=== PATIENT | female | born 1945 | race Caucasian/White ===

== ENCOUNTER 2020-01-24 14:01 | Outpatient (CLI) | payer OTHER, SELFPAY ==
--- NOTE | ~2020-01-24 | MM_ITS ---
EXAMINATION: MM screening maame BI w rema HISTORY: Screening mammogram TECHNIQUE: Craniocaudal and mediolateral oblique 3-D tomosynthesis images were obtained and synthetic 2-D images were generated. CAD analysis was submitted and interpreted. COMPARISON: 12/12/2018, 11/11/2017, 10/20/2016 bilateral digital screening mammogram examinations BREAST PARENCHYMAL COMPOSITION: The breasts are almost entirely fatty. FINDINGS: There is no evidence of suspicious mass, calcification, or architectural distortion to sugg est malignancy in either breast. There has been no suspicious interval change. IMPRESSION: 1. No mammographic evidence of malignancy. 2. Recommend routine screening mammography in one year. BI-RADS Category 1: Negative Reviewed, dictated and finalized at location A.
== END 2020-01-24 14:02 | disposition home or self-care (01) ==
DX: Z12.31 Encounter for screening mammogram for malignant neoplasm of breast (principal)
CPT/HCPCS: 77063; 77067

== ENCOUNTER 2021-01-16 18:38 | Emergency (ER) | payer OTHER, SELFPAY ==
--- NOTE | ~2021-01-16 | XR_ITS ---
XR hip RT 2V w AP pelvis DATE: 01/16/2021 19:20 INDICATION: Fall. Right hip pain TECHNIQUE: AP pelvis. AP and lateral views of right hip COMPARISON: 12/27/2013 right hip FINDINGS: Osteopenia. No fracture or dislocation, avascular necrosis or bone destruction of the right hip. Mild osteoarthritis of both hip joints. Mild osteitis pubis. The sacroiliac joints are intact. No pel dedra fracture or bone destruction is detected. Radiopaque bowel sutures overlie the right lower quadrant. There is prominent calcification of the abdominal aorta. Degenerative disc disease of the lumbar and lumbosacral area. IMPRESSION: No pelvic or right hip fracture or dislocation Osteopenia Osteitis pubis Reviewed, dictated and finalized at location A.
--- NOTE | ~2021-01-16 | XR_ITS ---
XR forearm RT 2V DATE: 01/16/2021 19:20 INDICATION: Fall. Forearm injury TECHNIQUE: AP and lateral views COMPARISON: None FINDINGS: Osteoarthritic changes at the elbow joint. There is prominent osteoarthritic change at the first carpometacarpal joint and first metacarpophalan geal and included third metacarpophalangeal joints. No fracture or dislocation, periosteal reaction or bone destruction. IMPRESSION: Polyarticular osteoarthritis No fracture or dislocation Reviewed, dictated and finalized at location A.
--- NOTE | ~2021-01-16 | XR_ITS ---
XR foot LT min 3V DATE: 01/16/2021 19:20 INDICATION: Fall. Left foot pain, swelling TECHNIQUE: 4 views COMPARISON: None FINDINGS: Prominent plantar calcaneal enthesopathy and mild posterior calcaneal enthesopathy, without erosive change or periostitis. There are degenerative changes of the tarsal and tarsometatarsal joints. No fracture or dislocation, periosteal reaction or bone destruction. IMPRESSION: No fracture or dislocation is detected Calcaneal enthesopathy Osteoarthritic changes of the tarsal and tarsometatarsal joints Reviewed, dictated and finalized at location A.
[2021-01-16 18:45] VITALS: BP 161/67; PULSE 66; RESP 18; TEMP 36.6; O2SAT 99
[2021-01-16] MEDS: ACETAMINOPHEN 325 MG TABLET 650 MG PO (19:22)
--- NOTE | 2021-01-16 20:05 | ED.FALL ---
HPI - Fall General Chief Complaint: Fall Stated Complaint: fall Time Seen by Provider: 01/16/21 18:47 Source: patient, family and RN notes reviewed Mode of arrival: ambulatory Limitations: no limitations History of Present Illness HPI Narrative: Patient is a 75-year-old female who presents to emergency department for evaluation of injuries related to a fall that occurred just prior to arrival she misstepped falling down injuring the right lateral forearm ulnar aspect as well as the right thigh hip and left foot patient notes aching pain to these locations the forearm has an abrasion and open area where there is an underlying hematoma patient is unsure as to tetanus status patient denies head injury syncope loss of consciousness on arrival patient does not appear distressed patient has not had anything for pain Related Data Home Medications Medication Instructions Recorded Confirmed diltiazem HCl PO 01/16/21 ergocalciferol (vitamin D2) 01/16/21 hydrochlorothiazide 01/16/21 loteprednol etabonate [Lotemax SM] drp 01/16/21 potassium chloride meq PO 01/16/21 Allergies Allergy/AdvReac Type Severity Reaction Status Date / Time erythromycin base Allergy Severe N/V Verified 01/16/21 18:40 codeine Allergy Unknown Gastrointestinal Verified 01/16/21 18:40 Upset pentazocine Allergy Unknown Unknown Verified 01/16/21 18:40 Sulfa (Sulfonamide Allergy Unknown Nausea and Verified 01/16/21 18:40 Antibiotics) Vomiting sulfanilamide Allergy Unknown Difficulty Verified 01/16/21 18:40 Swallowing HYDROCODONE BIT AdvReac Severe N/V Uncoded 04/20/19 21:21 PENTAZOCINE LACTATE AdvReac Severe N/V Uncoded 04/20/19 21:21 Review of Systems Review of Systems: All systems reviewed & are unremarkable except as noted in HPI and below PMFSH Family History Family History (Updated 02/28/16 @ 23:19 by DOCTOR UNKNOWN) Mother Carcinoma of colon Family history of malignant neoplasm of breast in first degree relative Other Diabetes mellitus Family history of allergic disorder Hypertension Social History Social History Smoking status: Never smoker Alcohol intake: current Exam Narrative: Exam Narrative: GENERAL: Well-appearing, well-nourished, and in no acute distress. HEAD: Normocephalic, atraumatic. EYES: PERRLA and EOMI. ENT: Nares clear, no rhinorrhea or epistaxis. Mucous membranes moist. CHEST: Clear to auscultation. No respiratory distress. No wheezes rales or rhonchi HEART: Regular rate and rhythm. No murmur heard. Normal peripheral pulses. EXTREMITIES: Normal range of motion. No edema. Hematoma swelling and tenderness with abrasion of the right distal forearm ulnar aspect. Tenderness of the right hip no deformity noted. Tenderness to the dorsal surface of the left forefoot no deformity noted. No cervical thoracic or lumbar tenderness SKIN: Warm, dry, no rash. NEURO: No focal deficits. Alert and oriented x3. Neurovascularly intact. Normal speech and gait PSYCH: Normal mood and affect. Course Course Emergency Course: Patient in the room in no distress aware of case findings treatment plan diagnosis agreeing to follow-up as instructed felt appropriate for outpatient reevaluation Vital Signs Vital signs: Vital Signs Temperature 97.9 F 01/16/21 18:45 Pulse Rate 66 01/16/21 18:45 Respiratory Rate 18 01/16/21 18:45 Blood Pressure 161/67 H 01/16/21 18:45 Pulse Oximetry 99 01/16/21 18:45 Temperature 97.9 F 01/16/21 18:45 Pulse Rate 66 01/16/21 18:45 Respiratory Rate 18 01/16/21 18:45 Blood Pressure 161/67 H 01/16/21 18:45 Pulse Oximetry 99 01/16/21 18:45 MDM - Fall MDM Narrative Medical decision making narrative: Patients injury or pain is consistent with musculoskeletal etiology. No signs of neurological or vascular compromise on exam. Compartments and tisues are soft without signs of compartment syndrome. Pain is
[2021-01-16 20:22] VITALS: BP 153/68; PULSE 68; RESP 16; O2SAT 98
== END 2021-01-16 20:21 | disposition home or self-care (01) ==
PROVIDERS: Emergency Provider Emergency Medicine
DX: S50.11XA Contusion of right forearm, initial encounter (principal); S50.811A Abrasion of right forearm, initial encounter; S90.32XA Contusion of left foot, initial encounter; M25.551 Pain in right hip; M85.88 Other specified disorders of bone density and structure, other site; M86.9 Osteomyelitis, unspecified; M77.32 Calcaneal spur, left foot; M19.021 Primary osteoarthritis, right elbow; W10.9XXA Fall (on) (from) unspecified stairs and steps, initial encounter
CPT/HCPCS: 73090; 73502; 73630; 99284; A9270

== ENCOUNTER 2024-06-12 10:39 | Emergency (ER) | payer OTHER, SELFPAY ==
--- NOTE | ~2024-06-12 | XR_ITS ---
EXAMINATION: XR shoulder RT min 2V DATE: 06/12/2024 11:17 INDICATION: Right shoulder pain. Fall. TECHNIQUE: 4 views of right shoulder were obtained. COMPARISON: Right shoulder radiographs 07/30/2009 FINDINGS: Alignment is normal. No fracture. There is mild osteoarthritis of glenohumeral joint and se keyur osteoarthritis of acromioclavicular joint. IMPRESSION: 1. Polyarticular osteoarthritis. Reviewed, dictated and finalized at location A. [employer]
[2024-06-12 10:54] VITALS: BP 146/55; PULSE 62; RESP 18; TEMP 36.2; O2SAT 100
--- NOTE | 2024-06-12 10:56 | ED.EXTPRO ---
HPI - Extremity Problem General Chief complaint: Extremity Injury, Upper Stated complaint: RT Arm Pain Source: patient, RN notes reviewed and old records reviewed Mode of arrival: ambulatory Limitations: no limitations History of Present Illness HPI Narrative: patient presents with complaints of right shoulder pain, worse with movement. She reports that 1 week ago her 180 lb dog knocked her into the yd, she landed on her right shoulder. She has been taking Tylenol for pain. She reports that she feels as though the pain is getting worse instead of better. She does have full range of motion to the affected shoulder. She denies other injury and trauma. She voices no other concerns or complaints at this time. Related Data Home Medications Medication Instructions Recorded Confirmed calcium carbonate (Calcium 600) 600 mg PO BID 11/18/22 06/12/24 cholecalciferol (vitamin D3) 25 25 mcg PO BID 11/18/22 06/12/24 mcg (1,000 unit) tablet (Vitamin D3) diltiazem HCl 300 mg capsule,24 300 mg PO DAILY 11/18/22 06/12/24 hr,extended release escitalopram oxalate 10 mg tablet 10 mg PO DAILY 11/18/22 06/12/24 hydrochlorothiazide 12.5 mg tablet 12.5 mg PO DAILY 11/18/22 06/12/24 pantoprazole 40 mg tablet,delayed 40 mg PO QAM 11/18/22 06/12/24 release potassium chloride 10 mEq 20 meq PO DAILY 11/18/22 06/12/24 tablet,extended release Allergies Allergy/AdvReac Type Severity Reaction Status Date / Time sulfanilamide Allergy Intermediate Difficulty Verified 06/12/24 10:59 Swallowing codeine AdvReac Intermediate Gastrointestinal Verified 06/12/24 10:59 Upset erythromycin base AdvReac Intermediate Nausea and Verified 06/12/24 10:59 Vomiting pentazocine AdvReac Intermediate Unknown Verified 06/12/24 10:59 Sulfa (Sulfonamide AdvReac Intermediate Nausea and Verified 06/12/24 10:59 Antibiotics) Vomiting HYDROCODONE BIT AdvReac Intermediate Nausea and Uncoded 06/12/24 10:59 Vomiting PENTAZOCINE LACTATE AdvReac Intermediate Nausea and Uncoded 06/12/24 10:59 Vomiting Review of Systems Review of Systems: All systems reviewed & are unremarkable except as noted in HPI and below Constitutional: Constitutional: Reports no additional constitutional complaints ENT: Reports system reviewed and no additional complaints, except as documented Cardiovascular: Cardiovascular: Reports no additional cardiovascular complaints Respiratory: Respiratory: Reports no additional respiratory complaints Gastrointestinal: Gastrointestinal: Reports no additional gastrointestinal complaints Musculoskeletal: Musculoskeletal: Reports no additional musculoskeletal complaints, Reports as per HPI and Reports arthralgias (right shoulder) [facility], [facility] Past Medical History Medical History Arthritis Chronic GERD History of vaginal delivery x 3 Hypertension Surgical History Surgical History History of bladder surgery History of cholecystectomy History of hysterectomy [place] teeth removed Family History Family History Mother Carcinoma of colon Family history of malignant neoplasm of breast in first degree relative Diabetes mellitus Other Family history of allergic disorder Social History Social History Smoking status: Never smoker Alcohol intake: former Substance use: never Lack of Transportation: No Lack of Food: Never True Current Housing: I Have Housing Concerned About Future Housing: No Difficulty Paying Gas/Electric Bills: No Difficulty Paying for Meds: No Currently Unemployed: No Education: Grade School Difficulty w/ Childcare or Family Care: No Living arrangements: with family Occupation/Education: occupation Gender identity (if verbalized by the patient): Female Sexual Orientation (if Verbalized by the Patient): Straight or Heterosexual Spiritual care concerns: No Comments At the time of my signature, I reviewed and agree with the nursing past medical, surgical, social, and family history. There is no relevant family history pertinent to the patient complaint. Exam Const: General: cooperative, no acute distress, alert and awake Orientation/consciousness: oriented to person, oriented to place and oriented to time HENMT: Head: normal to inspection Resp: Effort & Inspection: normal respiratory effort and able to speak in complete sentences Auscultation: clear to auscultation bilaterally, no crackles, no rales, no rhonchi and no wheezes Cardio: Palpation: normal PMI Rate: regular rate Rhythm: regular rhythm Heart sounds: S1 normal heart sound present and S2 normal heart sound present Neuro: General: oriented to person, oriented to place and oriented to time Cranial nerves: Yes CN's II-XII intact bilaterally Extrem: Right upper extremity: normal to inspection, full ROM, normal capillary refill and shoulder/upper arm tenderness of the A-C joint Psych: Appearance: grossly normal Thought process: Normal thought process present Insight: Good insight present (Psych) Judgement: Good judgement present (Psych) Course Course Level of Care: Express Care Visit Vital Signs Vital signs: Vital Signs Temperature 97.2 F L 06/12/24 10:54 Pulse Rate 62 06/12/24 10:54 Respiratory Rate 18 06/12/24 10:54 Blood Pressure 146/55 H 06/12/24 10:54 Pulse Oximetry 100 06/12/24 10:54 Oxygen Delivery Room Air 06/12/24 10:54 Temperature 97.2 F L 06/12/24 10:54 Pulse Rate 62 06/12/24 10:54 Respiratory Rate 18 06/12/24 10:54 Blood Pressure 146/55 H 06/12/24 10:54 Pulse Oximetry 100 06/12/24 10:54 Oxygen Delivery Room Air 06/12/24 10:54 Reviewed MDM - Extremity (Nontraumatic) MDM Narrative Medical decision making narrative: Patient with same level fall last week, right shoulder pain since. Negative x-ray, patient able to move affected limb without difficulty. recommend supportive care measures. Follow with primary care provider. Discharge instructions reviewed with patient, as well as provided in writing per nursing staff. The instructions also include specific and strict return/GO TO THE ER as well as f/u information. All questions have been answered, and the patient deny any further questions with discharge and discharge plan. Some parts of this dictation were generated by voice recognition software and may contain typographical and/or grammatical inaccuracies. Differential Diagnosis Differential diagnosis: Likely other (Shoulder pain, shoulder sprain, clavicle fracture) Medical Records Attestation: I reviewed the patient's medical records. Discharge Plan Discharge Clinical Impression: Acute shoulder pain Qualifiers: Laterality: right Qualified Code(s): M25.511 - Pain in right shoulder Patient Disposition: Home, Self-Care Condition: Stable Instructions: Antibiotic Form, Shoulder Pain (ED) Additional Instructions: Tylenol per package instructions as needed for pain. Follow-up with primary care provider. Emergency department for new or worsened Patient Language: Spanish Prescriptions: No Action escitalopram oxalate 10 mg tablet 10 mg PO DAILY hydrochlorothiazide 12.5 mg tablet 12.5 mg PO DAILY pantoprazole 40 mg tablet,delayed release (DR/EC) 40 mg PO QAM diltiazem HCl 300 mg capsule,extended release 24 hr 300 mg PO DAILY potassium chloride 10 mEq tablet extended release 20 meq PO DAILY cholecalciferol (vitamin D3) [Vitamin D3] 25 mcg (1,000 unit) tablet 25 mcg PO BID calcium carbonate [Calcium 600] 600 mg calcium (1,500 mg) tablet 600 mg PO BID estradiol [Estrace] 0.01 % (0.1 mg/gram) cream See Rx Instructions vaginal .COMPLEX Qty: 42.5 0RF Rx Instructions: apply 1g applicatorful 2-3 times weekly as needed Follow-up/Referrals: Tom,Chris Morin [Other] - 3 Days Time of Disposition: 11:39
== END 2024-06-12 11:42 | disposition home or self-care (01) ==
PROVIDERS: Emergency Provider Nurse Practitioner Family
DX: M25.511 Pain in right shoulder (principal); I10 Essential (primary) hypertension; M19.90 Unspecified osteoarthritis, unspecified site; K21.9 Gastro-esophageal reflux disease without esophagitis
CPT/HCPCS: 73030; 99213; G0463

== ENCOUNTER 2025-01-10 12:43 | Emergency (ER) | payer OTHER, SELFPAY ==
--- NOTE | ~2025-01-10 | CT_ITS ---
EXAMINATION: CT abd pelvis lumbar wo con DATE: 01/10/2025 14:05 INDICATION: Abdominal pain and epigastric pain. TECHNIQUE: Computed tomography (CT) of the abdomen, pelvis and lumbar spine was performed without int ravenous contrast. Echodense Lenny The dose-length product was 576.47 mGy-cm. COMPARISON: 01/01/2014 FINDINGS: Mild discoid atelectasis in bilateral lower lobes. Stable appearance of a couple pulmonary nodules in the right lower lobe the largest measuring 7-8 mm which given the interval stability are likely brendon gn requiring no further follow-up. Heart size is normal. No pericardial or pleural effusion. Small sl iding-type hiatal hernia. Cholecystectomy clips the gallbladder fossa. Liver, spleen, pancreas, bilat eral adrenal glands and kidneys are normal. Status post right hemicolectomy with ileocolic anastomosi s in the right lower quadrant. No bowel obstruction. There are few scattered diverticula along the de scending and sigmoid colon without adjacent from trace stranding to suggest diverticulitis. Postopera tive change along the margins of a small fat-containing supraumbilical ventral hernia. Large calcifie d bladder stone within the partially decompressed bladder. Pessary within the vaginal vault. No free intraperitoneal gas or fluid. No pathologically enlarged abdominal or pelvic lymphadenopathy. Mild focal lumbar dextrocurvature. 5 mm anterolisthesis L4 on L5. Vertebral body heights are normal. No fracture. There is moderate to severe disc height loss with vacuum phenomena at L4-L5. Moderate di sc height loss at T9-T10, L2-L3 and L3-L4 and mild disc height loss at T10-T11 through L1-L2. These c ontribute to multilevel central canal stenosis from L1-L2 through L4-L5.Superimposed right paracentra l disc extrusion at L4-L5 which extends up to 9 mm cephalad to the level of the inferior endplate of L4. There is severe bilateral facet osteoarthritis at L4-L5 and L5-S1 with moderate facet osteoarthri tis in the more cephalad lumbar spine. This contributes to mild bilateral neural foraminal stenosis f rom L1-L2 through L4-L5. IMPRESSION: 1. No acute intra-abdominal/pelvic process. 2. Small sliding-type hiatal hernia. 3. Small fat-containing supraumbilical ventral hernia. 4. Moderate to severe lumbar spondylosis. Reviewed, dictated and finalized at location A.
--- NOTE | ~2025-01-10 | XR_ITS ---
XR thoracic spine 3V 01/10/2025 14:26 Indication: Back pain after fall Procedure: 3 views thoracic spine Comparison: 06/07/2010 Findings: Vertebral body heights are maintained. Mild thoracic spondylosis. Accentuated kyphosis. Mil d levoscoliosis. There are cholecystectomy clips. No paraspinal soft tissue abnormality. Pedicles int act. Impression: 1: No acute abnormality of the thoracic spine. Reviewed, dictated and finalized at location B. Impression: 1: No acute abnormality of the thoracic spine.
--- NOTE | ~2025-01-10 | XR_ITS ---
[XR ribs LT 2V ] INDICATION: Left rib pain after fall TECHNIQUE: Frontal projection of the upper left ribs, frontal projection of the lower left ribs, obli que projection of all the left ribs, frontal inspiratory chest x-ray for interpretation. FINDINGS: There are no displaced rib fractures identified. There are no soft tissue abnormality see n. The lungs are clear. IMPRESSION: 1:No acute displaced rib fractures. Reviewed, dictated and finalized at location B.
[2025-01-10 12:50] VITALS: BP 156/61; PULSE 74; RESP 18; TEMP 36.6; O2SAT 100
[2025-01-10 13:09] VITALS: BP 170/87; PULSE 67; RESP 16; O2SAT 98
--- NOTE | 2025-01-10 13:38 | ED.FALL ---
HPI - Fall General Chief Complaint: Fall Stated Complaint: PAIN AFTER FALL 2WKS AGO Time Seen by Provider: 01/10/25 13:10 History of Present Illness HPI Narrative: 79-year-old female presenting to the emergency department for evaluation of left-sided back pain abdominal pain. Patient states that she fell several weeks ago across her dog that tripped her. She landed her left side. Was able to get up right away and did not seek medical attention but she still having some persistent pain left-sided her back for several weeks. Denies any numbness, tingling, neuropathy, weakness or incontinence. Ambulatory without any difficulty. He has also been complaints some intermittent stomach cramping and some diarrhea but no blood or dark stools. Her daughter made her come to the hospital even though patient did not want to be evaluated. Patient herself denies any chest pain, shortness a breath, fever, chills, incontinence or any neurological deficits. She endorses longstanding diarrhea and this is not new for her but thinks that could be related to her abdominal cramping that is localized to the epigastrium. Only history of abdominal surgeries is cholecystectomy. Related Data Home Medications ?Medication ?Instructions ?Recorded ?Confirmed ?Last Taken ?Type calcium carbonate (Calcium 600) 600 mg PO BID 11/18/22 06/12/24 Unknown History cholecalciferol (vitamin D3) 25 25 mcg PO BID 11/18/22 06/12/24 Unknown History mcg (1,000 unit) tablet (Vitamin D3) diltiazem HCl 300 mg capsule,24 300 mg PO DAILY 11/18/22 06/12/24 Unknown History hr,extended release escitalopram oxalate 10 mg tablet 10 mg PO DAILY 11/18/22 06/12/24 Unknown History hydrochlorothiazide 12.5 mg tablet 12.5 mg PO DAILY 11/18/22 06/12/24 Unknown History pantoprazole 40 mg tablet,delayed 40 mg PO QAM 11/18/22 06/12/24 Unknown History release potassium chloride 10 mEq 20 meq PO DAILY 11/18/22 06/12/24 Unknown History tablet,extended release Allergies Allergy/AdvReac Type Severity Reaction Status Date / Time sulfanilamide Allergy Intermediate Difficulty Verified 06/12/24 10:59 Swallowing codeine AdvReac Intermediate Gastrointestinal Verified 06/12/24 10:59 Upset erythromycin base AdvReac Intermediate Nausea and Verified 06/12/24 10:59 Vomiting pentazocine AdvReac Intermediate Unknown Verified 06/12/24 10:59 Sulfa (Sulfonamide AdvReac Intermediate Nausea and Verified 06/12/24 10:59 Antibiotics) Vomiting HYDROCODONE BIT AdvReac Intermediate Nausea and Uncoded 06/12/24 10:59 Vomiting PENTAZOCINE LACTATE AdvReac Intermediate Nausea and Uncoded 06/12/24 10:59 Vomiting Review of Systems Review of Systems: As reviewed above in [facility] Past Medical History Medical History History of vaginal delivery x 3 Chronic GERD Arthritis Hypertension Surgical History Surgical History [place] teeth removed History of cholecystectomy History of bladder surgery History of hysterectomy Family History Family History Mother Carcinoma of colon Family history of malignant neoplasm of breast in first degree relative Diabetes mellitus Other Family history of allergic disorder Social History Social History Smoking status: Never smoker Alcohol intake: former Substance use: never Lack of Transportation: No Lack of Food: Never True Current Housing: I Have Housing Concerned About Future Housing: No Difficulty Paying Gas/Electric Bills: No Difficulty Paying for Meds: No Currently Unemployed: No Education: Grade School Difficulty w/ Childcare or Family Care: No Living arrangements: with family Occupation/Education: occupation Gender identity (if verbalized by the patient): Female Sexual Orientation (if Verbalized by the Patient): Straight or Heterosexual Spiritual care concerns: No Exam Narrative: GENERAL: [Well-appearing, well-nourished, and in no acute distress.] HEAD: [Normocephalic, atraumatic.] EYES: [PERRLA and EOMI.] ENT: Nares clear, no rhinorrhea or epistaxis. Mucous membranes moist. NECK: Supple. CHEST: [Clear to auscultation. No respiratory distress.] Tenderness to palpation of the low lateral chest wall near the ribcage without any crepitus, deformity or step-offs. HEART: [Regular rate and rhythm]. No murmur heard. [Normal peripheral pulses.] ABDOMEN: [Soft, nondistended], mildly tender in the epigastrium but no peritonitis, [No rigidity or guarding] tenderness to palpation to the left CVA, flank area without any overlying skin changes palpable deformities or crepitus. EXTREMITIES: Normal range of motion. [No edema.] SKIN: Warm, dry, no rash. NEURO: [No focal deficits]. Alert and oriented [x3.] PSYCH: [Normal mood and affect.] Course Vital Signs Vital signs: Vital Signs Temperature 36.6 C 01/10/25 12:50 Pulse Rate 74 01/10/25 12:50 Respiratory Rate 18 01/10/25 12:50 Blood Pressure 156/61 H 01/10/25 12:50 Pulse Oximetry 100 01/10/25 12:50 Oxygen Delivery Room Air 01/10/25 12:50 Temperature 36.6 C 01/10/25 12:50 Pulse Rate 67 01/10/25 13:09 Respiratory Rate 16 01/10/25 13:09 Blood Pressure 170/87 H 01/10/25 13:09 Pulse Oximetry 98 01/10/25 13:09 Oxygen Delivery Room Air 01/10/25 13:09 MDM - Fall MDM Narrative Medical decision making narrative: 79-year-old female presenting to the emergency department for left-sided back pain and abdominal cramping with diarrhea. Patient states that she fell several weeks ago onto her left side while tripping over her dog. Did not seek medical attention and denies any neurological complaints or incontinence. She has no red flag signs or symptoms of midline back pain on her examination. Her examination shows tenderness reproducible to the left flank and left-sided rib cage without any palpable step-offs deformities. Her abdominal pain is mild and described as cramping sensation in the epigastrium. She has longstanding diarrhea without any change her bowel habits, blood or melena. She is otherwise well-appearing. Blood pressure is slightly hypertensive but not severe. No tachycardia, fever, hypoxia. Patient was offered analgesia medications but she declined. CT scan of the abdomen pelvis without contrast was ordered, x-rays of the lumbar and thoracic back with rib series also obtained. Blood work ordered. Considerations presently for musculoskeletal back pain secondary to fall, muscle contusion, bony contusion, rib fracture, less likely retroperitoneal hematoma, kidney stone, intra-abdominal bleeding or intra-abdominal process such as infection. Patient otherwise has a reassuring examination and historical elements for several weeks in duration. Patient's laboratory studies are reassuring with no leukocytosis or anemia. Normal platelet count. Normal electrolytes. Normal renal and hepatic function panel. Normal glucose. X-rays of the ribs and back showed no rib fractures or any acute fracture/dislocation. CT scans also showed no acute intra-abdominal or pelvic process. She has a small sliding hiatal hernia as well as small ventral hernia with fat. Likely the source of her discomfort for several weeks. Moderate to severe spondylosis of the lumbar region but no fracture dislocation. Patient is safe for discharge at this time with follow-up with her PCP regarding the above findings. Patient given return precautions. Medical Records Attestation: I reviewed the patient's medical records. Lab Data Attestation: I reviewed the patient's lab results. 01/10/25 13:55 01/10/25 13:55 Labs: Lab Results 01/10/25 Range/Units 13:55 WBC 7.7 (4.5-10.0) K/mm3 RBC 4.47 (4.2-5.4) M/mm3 Hgb 13.7 (12.0-15.0) g/dL Hct 41.9 (37.0-47.0) % MCV 93.7 (80-100) fl MCH 30.6 (26-34) pg MCHC 32.7 (32-36) g/dl RDW 13.0 (11.5-14.5) % Plt Count 254 (150-375) k/mm3 MPV 10.1 (7.4-10.4) fl Immature Gran % (Auto) 0.3 (0-0.5) % Neut % (Auto) 55.7 (45.5-73.1) % Lymph % (Auto) 36.7 (18.3-44.2) % Latimer % (Auto) 6.1 (2.6-8.5) % Eos % (Auto) 0.4 (0-4.4) % Baso % (Auto) 0.8 (0.2-1.2) % Lymph # (Auto) 2.81 (0.9-3.2) K/mm3 Latimer # (Auto) 0.5 (0.1-0.6) K/mm3 Eos # (Auto) 0.0 (0-0.3) K/mm3 Baso # (Auto) 0.1 (0.0-0.1) K/mm3 Abs Immat Gran (auto) 0.02 (0.00-0.031) K/mm3 Absolute Neuts (auto) 4.3 (1.3-6.7) K/mm3 Absolute Nucleated RBC 0.000 (0.0-0.012) K/mm3 Nucleated RBC % 0.0 (0.0-0.2) % PT 13.5 (11.1-14.7) Seconds INR 1.0 APTT 26.2 (22.3-36.8) Seconds Sodium 138 (137-145) mmol/L Potassium 3.6 (3.4-5.0) mmol/L Chloride 102 (98-107) mmol/L Carbon Dioxide 28 (22-30) mmol/L Anion Gap 8 (4-12) mmol/L BUN 9 (7-17) mg/dL Creatinine 0.80 (0.7-1.0) mg/dL Estim Creat Clear Calc 46 ml/min Estimated GFR > 60 (59 - ) Glucose 122 H (65-110) mg/dL Calcium 9.4 (8.4-10.2) mg/dL Total Bilirubin 0.7 (0.2-1.3) mg/dL AST 28 (14-36) U/L ALT 17 (6-35) U/L Alkaline Phosphatase 69 (38-126) U/L Total Protein 8.0 (6.3-8.2) g/dL Albumin 4.3 (3.5-5.1) g/dL Imaging Data Attestation: I personally reviewed and interpreted this imaging study as follows: My impression: Impressions Ribs X-Ray 01/10/25 15:00 IMPRESSION: 1:No acute displaced rib fractures. Thoracic Spine X-Ray 01/10/25 15:03 Impression: 1: No acute abnormality of the thoracic spine. Miscellaneous CT Procedure 01/10/25 15:13 IMPRESSION: 1. No acute intra-abdominal/pelvic process. 2. Small sliding-type hiatal hernia. 3. Small fat-containing supraumbilical ventral hernia. 4. Moderate to severe lumbar spondylosis. Discharge Plan Discharge Clinical Impression: Left flank pain, Abdominal pain, Chronic diarrhea, Musculoskeletal back pain, Hernia, hiatal, Hernia, ventral Patient Disposition: Home Condition: Stable Instructions: Antibiotic Form, Hiatal Hernia (DC), Muscle Strain (ED), Contusion in Adults (ED), Abdominal Pain (ED), Ventral Hernia (ED) Additional Instructions: Your imaging studies are reassuring and there are no acute fractures, dislocations, bleeding or any other immediate concerns. You have 2 small hernias near the stomach and musculoskeletal anterior abdominal wall which could be the source of your abdominal discomfort but no signs of any obstruction or emergent concern. No fractures or dislocations in the back or ribcage and likely just bruising from the injury itself. Follow-up with regular doctor about these findings, take Tylenol and ibuprofen for any aches or pains, return with any emergent concerns. Patient Language: Indian Prescriptions: No Action escitalopram oxalate 10 mg tablet 10 mg PO DAILY hydrochlorothiazide 12.5 mg tablet 12.5 mg PO DAILY pantoprazole 40 mg tablet,delayed release (DR/EC) 40 mg PO QAM diltiazem HCl 300 mg capsule,extended release 24 hr 300 mg PO DAILY potassium chloride 10 mEq tablet extended release 20 meq PO DAILY cholecalciferol (vitamin D3) [Vitamin D3] 25 mcg (1,000 unit) tablet 25 mcg PO BID calcium carbonate [Calcium 600] 600 mg calcium (1,500 mg) tablet 600 mg PO BID estradiol [Estrace] 0.01 % (0.1 mg/gram) cream See Rx Instructions vaginal .COMPLEX Qty: 42.5 0RF Rx Instructions: apply 1g applicatorful 2-3 times weekly as needed Follow-up/Referrals: UNKNOWN,DOCTOR [Primary Care Provider] - Time of Disposition: 15:39
[2025-01-10 14:02] LABS: Basophils Absolute Auto 0.1 K/mm3 (0.0-0.1); Basophils Percent Auto 0.8 % (0.2-1.2); Eosinophils Percent Auto 0.4 % (0-4.4); Hematocrit 41.9 % (37.0-47.0); Hemoglobin 13.7 g/dL (12.0-15.0); Immature Granulocyte Absolute 0.02 K/mm3 (0.00-0.031); Immature Granulocyte Percent A 0.3 % (0-0.5); Lymphocytes Absolute Auto 2.81 K/mm3 (0.9-3.2); Lymphocytes Percent Auto 36.7 % (18.3-44.2); Mean Corpuscular HGB Conc 32.7 g/dl (32-36); Mean Corpuscular Hemoglobin 30.6 pg (26-34); Mean Corpuscular Volume 93.7 fl (80-100); Mean Platelet Volume 10.1 fl (7.4-10.4); Monocytes Absolute Auto 0.5 K/mm3 (0.1-0.6); Monocytes Percent Auto 6.1 % (2.6-8.5); Neutrophils Absolute Auto 4.3 K/mm3 (1.3-6.7); Neutrophils Percent Auto 55.7 % (45.5-73.1); Platelet Count Result 254 k/mm3 (150-375); Red Blood Count 4.47 M/mm3 (4.2-5.4); White Blood Count 7.7 K/mm3 (4.5-10.0)
[2025-01-10 14:20] LABS: Alanine Aminotransferase 17 U/L (6-35); Albumin Level 4.3 g/dL (3.5-5.1); Alkaline Phosphatase 69 U/L (38-126); Anion Gap 8 mmol/L (4-12); Aspartate Amino Transferase 28 U/L (14-36); Bilirubin,Total 0.7 mg/dL (0.2-1.3); Blood Urea Nitrogen 9 mg/dL (7-17); Calcium 9.4 mg/dL (8.4-10.2); Carbon Dioxide 28 mmol/L (22-30); Chloride 102 mmol/L (98-107); Estimated CRCL calculation 46 ml/min; Estimated Glomerular Filt Rate > 60; Glucose 122 mg/dL (65-110); Potassium 3.6 mmol/L (3.4-5.0); Sodium 138 mmol/L (137-145)
[2025-01-10 14:22] LABS: Prothrombin Time 13.5 Seconds (11.1-14.7)
[2025-01-10 14:23] LABS: Partial Thromboplastin Time 26.2 Seconds (22.3-36.8)
--- OUTSIDE RECORDS SUMMARY | 2025-01-10 14:38 | XMS_ITS | Encounter Summary ---
Author Organization [facility] Address [address] [place] [address] Phone Care Team Providers Care Direct Chill Caster Name Role Phone Chris Santos MD Primary Care Provider [phone] Dayana Bains MA Unavailable [phone] Tory Gold RN Unavailable [phone] Jen Faulkner [facility] Unavailable Chris Santos MD Primary Care Provider [phone] Encounter Details Date Type Department Care Team (Late st Contact Info) Description 10/05/2017 Orders Only [facility] ProviderCorrina MD [address] [place] [id number] Social History Tobacco Use Types Packs/Day Years Used Date Smoking Tobacco: Never Smokeless Tobacco: Never Alcohol Use Standard Drinks/Week Comments Yes 0 (1 standard drink = 0.6 oz pur e alcohol) Comments Unknown Sex and Gender Information Value Date Recorded Sex Assigned at Not on file 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 Gender Identity Not on file Sexual Orientation Not on file Occupation Industry Job Start Date Job End Date [employer] Not on file Not on file Not on file documented as of this encounter Plan of Treatment Not on file documented as of this encounter Procedures Procedure Name Priority Date/Time Associated Diagnosis Comments DISCHARGE LABORATORY CUMULATIVE REPORT 10/05/2017 12:00 AM 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 us Historical Provider LAB BLOOD ORDERABLES Cammie l Result documented in this encounter Visit Diagnoses Not on filedocumented in this encounter Care Teams Direct Chill Caster Relationship Specialty Start Date End Date Chris Santos MD PCP - General 10/30/16 10/29/24 [place] [id number] [facility] [address] [place] [address] PCP - General Internal Medicine 10/30/24 Dayana Bains MA [address] [place], [place] [id number] ACO Care Head Esthetician 10/26/17 10/27/17 Tory Gold, RN [address] [facility] [address] [place] [address] Postage Machine Operator 01/12/19 01/12/19 Jen Faulkner RPh [address] [place], [place] [id number] Pharmacist Pharmacy 02/27/22 02/27/22 documented as of this encounter
--- OUTSIDE RECORDS SUMMARY | 2025-01-10 14:38 | XMS_ITS | Clinical Summary ---
Author Organization [facility] Care Team Providers Care Dipper Fish Name Role Phone Unavailable Primary Care Provider Unavailabl e Social History Tobacco Use Types Packs/Day Years Used Date Smoking Tobacco: Never Assessed Comments Unknown Sex and Gender Information Value Date Recorded Sex Assigned at Not on file Legal Sex Female 11:12 PM CDT Gender Identity Not on file Sexual Orientation Not on file Plan of Treatment Health Maintenance Due Date Last Done Comments DEXA Bone Density 1945 Hepatitis C Virus (HCV) Screening 1945 TdaP Immunization 1945 Pneumococcal Immunization (5 0+ years) (1 of 1 - PCV) 10/27/1997 Zoster Immunization (1 of 2) 10/27/1997 Respiratory Syncytial Virus (RSV) Immunization (Adult) (1 - 1-dose 75+ series) 10/27/2022 Influenza Immunization (#1) 2024 SARS-COV-2 Immunization ( season) 2024 Hepatitis B Immunization Aged Out No longer eligible based on patient's age to complete this topic Meningococcal Immunization (ACWY) Aged Out No longer eligible based on patient's age to complete this topic Rotavirus Immunization Aged Out No lo nger eligible based on patient's age to complete this topic
--- OUTSIDE RECORDS SUMMARY | 2025-01-10 14:38 | XMS_ITS | Clinical Summary ---
Author Organization [facility] Address [address] [place] [address] Care Team Providers Care Wastewater Analyst Name Role Phone Chris Santos MD Primary Care Provider Allergies Active Allergy Reactions Criticality Noted Date Comments Codeine Pentazocine Sulfa (Sulfonamide Antibiotics) Anaphylaxis Reaction: Anaphylaxis, Talwin Compound Unknown 11/30/2017 Medications cyanocobalamin (Vitamin B-12) 1,000 mcg tablet Take 1 tablet (1,000 mcg total) by mouth daily 04/10/2019 Active naproxen (NAPROSYN) 500 mg tablet TAKE ONE TABLET BY MOUTH TWICE A DAY WITH FOOD NEEDED FOR LEG PAIN 180 tablet 2 09/11/2021 Active cholecalciferol (VITAMIN D-3) 25 mcg (1,000 unit) tablet Take 1 tablet (1,000 Units total) by mouth daily Active cholestyramine (QUESTRAN) 4 gram packet MIX AND TAKE 1 PACKET DAILY BY MOUTH 90 packet 1 02/28/2023 Active escitalopram (LEXAPRO) 10 mg tablet TAKE 1 TABLET BY MOUTH EVERY DAY 90 tablet 3 07/12/2023 Active hydroCHLOROthia zide 12.5 mg tablet TAKE 1 TABLET BY MOUTH EVERY DAY 90 tablet 3 02/04/2024 Active dilTIAZem CD (CARDIZEM CD) 300 mg 24 hr capsule Take 1 capsule (300 mg total) by mouth daily 90 capsule 3 02/16/2024 Active potassium chloride ER 10 mEq CR tablet TAKE 2 TABLETS BY MOUTH EVERY DAY 180 tablet 3 05/01/[address] (PROTONIX) 40 mg EC tablet TAKE 1 TABLET BY MOUTH EVERY DAY 90 tablet 3 06/12/2024 Active Active Problems Problem Noted Date Diagnosed Date Acute pain of right shoulder 09/20/2023 Assessment & Plan (08/18/2024 12:19 PM PROPELLER LAYOUT WORKER): New problem after falling, although similar complaints of shoulder pain in the past. Reassuring that x-ray was negative although no record available. Possible rotator cuff injury and advised supportive care with shoulder exercises provided. Physical therapy fails to improve which could also focus on strength, balance, and fall prevention. Discussed fall precautions. Assessment & Plan (10/30/2023 10:59 PM CDT): Recent problem, improving. Note x-ray with acute injury. Possible mild rotator cuff injury. Reinforced supportive care and shoulder exercises provided. Physical therapy if fails to improve. Discussed fall precautions. Assessment & Plan (09/20/2023 11:52 AM PROPELLER LAYOUT WORKER): Cannot exclude fracture given recent fall-x-ray today. Recommend extra strength Tylenol 2-3 times daily. May alternate ice and heat for 20 minutes each several times per day. May also use topical diclofenac gel or lidocaine patch. If there is no fracture and symptoms slowly improve, then plan to follow-up at next office visit. If no improvement, she will reach out as we may need further imaging or formal physical therapy Right elbow pain 09/20/2023 Assessment & Plan (09/20/2023 11:53 AM PROPELLER LAYOUT WORKER): X-ray today to exclude fracture-sees a plan for shoulder pain History of prolapse of bladder 04/09/2023 Assessment & Plan (10/30/2024 2:38 PM CDT): Doing fairly well with pessary-she will follow-up with specialists as scheduled Assessment & Plan (04/09/2023 11:48 AM CDT): Recent problem with reported repair. We have no record of this and asked her to send office notes from today's urology appointment. Dupuytren's contracture of both hands 08/28/2019 Vitamin D deficiency 10/05/2017 Assessment & Plan (10/30/2024 2:38 PM CDT): Continue supplements Assessment & Plan (10/30/2023 10:56 PM CDT): Lab testing ordered. Continue supplement. Assessment & Plan (04/09/2023 11:46 AM CDT): Re-evaluate today since recently switched to [id number] supplement. Assessment & Plan (10/19/2022 9:56 PM CDT): Re-evaluate vitamin-D. Slightly elevated at 82. Discontinue prescription supplement and recommend oviy-[id number] vitamin D3 1000 IU daily. Assessment & Plan (10/16/2021 4:33 PM CDT): Re-evaluate need for supplements today Assessment & Plan (10/07/2018 8:28 AM PROPELLER LAYOUT WORKER): Chronic. Re-evaluate today Psoriasis 09/16/2017 Tremor 09/16/2017 Overview (09/16/2017): 09/19: Mild tremor-observe Gastroesophageal reflux disease without esophagi tis 10/01/2016 Overview (07/22/2020): GERD: On chronic PPI 04/21-discussed trying to wean PPI Assessment & Plan (10/30/2024 2:38 PM CDT): Fair control on current regimen Assessment & Plan (10/30/2023 10:55 PM CDT): Chronic, controlled on PPI. Follow-up lab testing ordered. Assessment & Plan (10/19/2022 9:58 PM CDT): Chronic, controlled on PPI. Recommend trial of alternate day dosing. Resume daily use if symptoms are uncontrolled. Lab testing ordered. Assessment & Plan (10/16/2021 4:34 PM CDT): Stable on medication-lab testing ordered Assessment & Plan (12/19/2019 11:05 AM CDT): Continued Protonix daily as directed. Symptoms controlled with Protonix daily in with discontinuing NSAIDs. Assessment & Plan (11/28/2019 11:06 AM CDT): Patient to continue her pantoprazole daily. Patient is already discontinued meloxicam. Symptoms of burning and throat constriction should improve with stopping the lisinopril and the meloxicam. Some component of her throat irritation may be secondary to anxiety as well which hopefully will improve with taking BuSpar. Assessment & Plan (10/07/2018 8:27 AM PROPELLER LAYOUT WORKER): Chronic and stable. Reviewed risks of PPI. Laboratory testing ordered Cobalamin deficiency 10/01/2016 Overview (10/21/2020): 10/16: Started oral replacement 10/19-level less than 300, started 1000 mcg daily Assessment & Plan (10/30/2024 2:38 PM CDT): Continue supplements Assessment & Plan (10/30/2023 10:55 PM CDT): Re-evaluate today. Continue supplement. Assessment & Plan (10/19/2022 9:58 PM CDT): Re-evaluate today. Continue supplement. Assessment & Plan (10/16/2021 4:34 PM CDT): Re-evaluate today Assessment & Plan (10/07/2018 8:26 AM PROPELLER LAYOUT WORKER): Chronic. Re-evaluate today Generalized anxiety disorder 01/30/2016 Assessment & Plan (10/30/2024 2:38 PM CDT): Fair control with some increased situational stress. She appears to be coping well. Continue current medication. Addressing 's medical problems today Assessment & Plan (08/18/2024 12:18 PM PROPELLER LAYOUT WORKER): Chronic and stable on escitalopram. Assessment & Plan (10/30/2023 10:55 PM CDT): Chronic and stable on escitalopram. Assessment & Plan (04/09/2023 11:46 AM CDT): Chronic and stable on escitalopram. Assessment & Plan (10/19/2022 9:59 PM CDT): Chronic, doing well on escitalopram. Continue use. Assessment & Plan (04/22/2022 12:38 PM CDT): Improved with the addition of escitalopram-continue Assessment & Plan (04/08/2022 3:02 PM CDT): Chronic with acute worsening. None of her medications obviously cause hallucinations and reassurance provided. Escitalopram 10 mg prescribed. Discussed possible side effects and delayed onset. Plan to bridge with alprazolam. Discussed risks with benzodiazapines in general including sedation and fall risk. Do not take this with gabapentin, which she takes primarily to sleep rather than for pain. Discussed supportive treatment with stress reduction and meditation. Follow-up in about 3 weeks as planned, sooner if having problems. Assessment & Plan (12/19/2019 11:06 AM CDT): Continue taking the Xanax as needed for your anxiety. Assessment & Plan (11/28/2019 11:06 AM CDT): BuSpar 10 mg to be taken twice daily for anxiety. Patient to schedule follow-up appointment in 3 weeks for blood pressure will also evaluate at that time the effectiveness of current medication. Primary osteoarthritis of both knees 08/21/2015 Overview (10/16/2021): Hands, knees, spine Topical diclofenac of no benefit Unable to tolerate naproxen Assessment & Plan (10/30/2024 2:38 PM CDT): Has declined offers for joint injection or discussion of joint replacement surgery. Continue to manage supportively Assessment & Plan (08/18/2024 12:17 PM PROPELLER LAYOUT WORKER): Chronic, pain is uncontrolled. Offered steroid injection and she declines. She is not interested in surgery. Recommend taking Tylenol 1000 mg every 6 hours daily or as needed; maximum dose: 3000 mg/day. Assessment & Plan (04/09/2023 11:47 AM CDT): Chronic, pain is uncontrolled. She is not interested in surgery. Recommend trial scheduling Tylenol. Take 1000 mg every 6 hours daily or as needed; maximum dose: 3000 mg/day. Assessment & Plan (10/19/2022 10:00 PM CDT): Chronic, pain is uncontrolled. She is not interested in surgery. Recommend trial scheduling Tylenol. Take 1000 mg every 6 hours daily or as needed; maximum dose: 3000 mg/day. Naproxen as needed. Water aerobics is a good option for exercise. Assessment & Plan (04/22/2022 12:38 PM CDT): No significant change in symptoms. Has declined to consider joint replacement. Recommend that she start pool exercises to see if this helps her symptoms Assessment & Plan (10/16/2021 4:35 PM CDT): Strongly recommend that she get an appointment with Orthopedics to discuss joint replacement surgery. Handicap placard to be mailed to the patient. Assessment & Plan (12/19/2019 11:06 AM CDT): Take Tylenol 1000 mg 3 times daily at 6-8 hour intervals. You must take this routinely as directed for it to have benefit of relieving her pain. Assessment & Plan (10/07/2018 8:28 AM PROPELLER LAYOUT WORKER): Chronic, uncontrolled Trial of topical diclofenac gel in the hopes that this results in a reduce need to take naproxen regularly Discussed risks of NSAIDs Recommend regular physical activity and weight reduction May need to see orthopedics Essential hypertension 08/21/2015 Overview (07/22/2020): Hypertension: Managed with diltiazem, HCTZ Assessment & Plan (10/30/2024 2:38 PM CDT): Blood pressure at goal on current medication Assessment & Plan (08/18/2024 12:17 PM PROPELLER LAYOUT WORKER): Chronic, controlled. Continue current diltiazem and hydrochlorothiazide. Recommend periodic home monitoring. Assessment & Plan (10/30/2023 10:55 PM CDT): Chronic, controlled. Continue current medication regimen. Recommend periodic home monitoring. Assessment & Plan (04/09/2023 11:45 AM CDT): Chronic, controlled. BMP ordered. Continue current medication regimen. Recommend periodic home monitoring. Assessment & Plan (10/19/2022 9:59 PM CDT): Chronic, controlled. Continue current regimen. Assessment & Plan (10/16/2021 4:34 PM CDT): Blood pressure is controlled. Continue current medication. Lab testing ordered. Recommend periodic home monitoring. Caution with changes in position. Assessment & Plan (12/19/2019 11:04 AM CDT): Blood pressure is well controlled today at 124/70. Continue diltiazem 300 mg daily and hydrochlorothiazide 12.5 mg daily. Assessment & Plan (11/28/2019 11:04 AM CDT): Blood pressure is well controlled today however due to the complaints of cough and throat swelling, Will consider possible side effect to the lisinopril causing these symptoms. Patient to discontinue lisinopril. Patient to increase diltiazem to 300 mg daily and will send in a prescription for hydrochlorothiazide 12.5 mg daily. Will schedule follow-up appointment in 3 weeks. Patient states she does not have ability to access zone at home and would prefer to come to the office. Assessment & Plan (10/07/2018 8:26 AM PROPELLER LAYOUT WORKER): Controlled. Continue present regimen Resolved Problems Problem Noted Date Diagnosed Date Resolved Date History of fall 09/20/2023 10/30/2024 Assessment & Plan (09/20/2023 11:53 AM PROPELLER LAYOUT WORKER): Discussed awareness and fall risk reduction. Note long-time gait disturbance related to osteoarthritis of the knees-has declined surgery Hypokalemia 04/22/2022 04/09/2023 Assessment & Plan (10/19/2022 9:57 PM CDT): Re-evaluate today and potassium is normal. Continue current supplement. Assessment & Plan (04/22/2022 12:37 PM CDT): Re-evaluate today after recent adjustment in potassium level. Suspect hypokalemia due to diarrhea Diarrhea 04/08/2022 04/09/2023 Assessment & Plan (04/22/2022 12:38 PM CDT): Ongoing issue, exact etiology remains unclear. It appears that her diarrhea predates recent onset of anxiety. In the past, thought to possibly have bile acid diarrhea. Plan on a trial of cholestyramine once daily. Check markers of inflammation. If no relief with cholestyramine, she may require further evaluation (GI referral/colonoscopy, IBD panel/fecal calprotectin) Assessment & Plan (04/08/2022 3:01 PM CDT): New problem. Suspect anxiety is contributing- see plan. No orthostasis on exam. Lab testing ordered to evaluate possible dehydration. Encouraged adequate hydration and advance diet slowing with instructions provided. Recommend Pepto or Imodium as needed. Acute pain of left shoulder 10/16/2021 04/09/2023 Assessment & Plan (10/16/2021 4:34 PM CDT): Acute pain of the left shoulder in the setting of chronic bilateral shoulder pain. Suspect rotator cuff tendinitis, likely has osteoarthritis as well. Provided with written prescription for physical therapy. Discussed cortisone injection-she would like to proceed with subacromial cortisone injection-see the procedure note. If symptoms worsen, may need referral to Orthopedics. Tooth pain 03/19/2020 04/23/2020 Assessment & Plan (03/19/2020 1:29 PM CDT): Left her molar according to patient has been cracked for a number of months but not painful Concern for infection patient does have an appointment but not for 6 days with her dentist Amoxicillin If symptoms worsen pace instructed to recall her dentist go to the ER BMI 28.0-28.9,adult 03/19/2020 04/22/20 20 Assessment & Plan (03/19/2020 1:28 PM CDT): BMI Follow-up includes: education provided. Fatigue 10/09/2019 04/23/2020 Overview (04/22/2020): 08/21-nocturia, suspected GRACE-declined eval Postconcussion syndrome 08/28/2019 0304/2020 Osteoarthritis of both hands 08/28/2019 04/22/2020 BMI 30.0-30.9,adult 04/24/2019 04/22/20 20 Assessment & Plan (12/19/2019 11:07 AM CDT): Eating a diet that is high in fresh fruits and vegetables as well as complex carbohydrates, lean meats and avoiding high fat foods and concentrated sugars is preferable and helps lead to a healthier BMI. Also adding in aerobic exercise daily will help lead to a lower BMI. Assessment & Plan (11/28/2019 11:07 AM CDT): Eating a diet that is high in fresh fruits and vegetables as well as complex carbohydrates, lean meats and avoiding high fat foods and concentrated sugars is preferable and helps lead to a healthier BMI. Also adding in aerobic exercise daily will help lead to a lower BMI. Assessment & Plan (05/02/2019 11:54 AM CDT): Eating a diet that is high in fresh fruits and vegetables as well as complex carbohydrates, lean meats and avoiding high fat foods and concentrated sugars is preferable and helps lead to a healthier BMI. Also adding in aerobic exercise daily will help lead to a lower BMI. Assessment & Plan (04/24/2019 12:31 PM CDT): Eating a diet that is high in fresh fruits and vegetables as well as complex carbohydrates, lean meats and avoiding high fat foods and concentrated sugars is preferable and helps lead to a healthier BMI. Also adding in aerobic exercise daily will help lead to a lower BMI. Closed fracture of nasal bon e with routine healing 01/18/2019 10/09/2019 Overview (01/18/2019): 6.19.19 Recently seen in the emergency room following a fall-tripped on concrete CT scan performed-demonstrated some minor lucency and leftward displacement of the nasal bones (possibly chronic) Discharge home with instructions to see ENT Acute Minimal symptoms Discussed referral to ENT-patient would like to hold off unless symptoms worsen Discussed fall prevention at length Assessment & Plan (05/02/2019 11:53 AM CDT): Reviewed previous instructions. Patient states she is able to breathe through her nose without trouble at this time. Does still have tenderness across the nasal bones. No referral to ENT at this time. Acute right-sided low back p ain with right-sided sciatica 10/14/2017 10/07/2018 Neck pain 09/16/2017 10/09/2019 Overview (09/16/2017): 09/19: Home exercise program, x-rays Medicare annual wellness visit, subsequent 03/28/2017 10/29/2024 Assessment & Plan (10/30/2024 2:21 PM CDT): Health maintenance reviewed: Shingrix (shingles) recommended-can get this at the pharmacy without a prescription. About 35% experience arm redness or pain after the injection, lasting a few days. About 11% experience headache, fatigue, chills and/or fever, lasting a few days. Recommend getting RSV vaccine at the pharmacy Lab testing to monitor chronic conditions Assessment & Plan (10/30/2023 10:54 PM CDT): Reviewed health maintenance: Recommend Shingrix Lab testing ordered to monitor chronic conditions. Assessment & Plan (10/19/2022 9:57 PM CDT): Reviewed health maintenance: Recommend Shingrix Lab testing ordered to monitor chronic conditions. Assessment & Plan (04/22/2022 12:36 PM CDT): Health maintenance updates: Recommend influenza vaccine and bivalent COVID vaccine in late May. Recommend Shingrix Recommend a diet high in fruits and vegetables and low in processed foods. Practice good portion control and try to avoid eating late at night. Recommend regular physical activity Hyperlipidemia 10/01/2016 10/30/2024 Assessment & Plan (10/30/2023 10:55 PM CDT): Lipid panel ordered. Encouraged healthy diet and exercise. Assessment & Plan (10/19/2022 9:59 PM CDT): Lipid panel ordered. Encouraged healthy diet and exercise. Assessment & Plan (10/16/2021 4:34 PM CDT): Check lipid profile today. 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 0 04/22/2022 Encounters Date Type Department Care Team Description 10/31/2024 Results Follow-Up [facility] [place] [id number] [place] [address] [place] [address] Chris Santos MD Vitamin D 25 hydroxy, Thyroid Function [place], Lipid panel, Additional followed-up results: 5 10/30/2024 3:00 PM CDT Lab [facility] [place] [id number] [place] [id number] Medicare annual wellness visit, subsequent; Essential hypertension; Cobalamin deficiency; Vitamin D deficiency; Gastroesophageal reflux disease without esophagitis; Generalized anxiety disorder; Fatigue, unspecified type; History of prolapse of bladder; Primary osteoarthritis of both knees 10/30/2024 2:30 PM CDT Office Visit [facility] [address] [place] [address] Chris Santos MD Medicare annual wellness visit, subsequent (Primary Dx); Essential hypertension; Cobalamin deficiency; Vitamin D deficiency; Gastroesophageal reflux disease without esophagitis; Generalized anxiety disorder; Fatigue, unspecified type; History of prolapse of bladder; Primary osteoarthritis of both knees from Last 3 Months Immunizations Immunization Administration Dates Next Due Influenza, Quadrivalent, Hig h Dose, Preservative Free, Intrr 05/18/2022,04/23/2021,07/08/2020 Influenza, Quadrivalent, Spl it, Preservative Free, Intramuscular 06/08/2017 Influenza, Trivalent, High D ose, Split, Preservative Free, Intramuscular 06/30/2024,04/10/2019,04/07/2018,10/01,08/21/2015 Influenza, Unspecified 07/28/2014,04/27/2013,06/2013 Pneumococcal Conjugate PCV 13 08/21/2015 Pneumococcal Polysaccharide PPV23 10/01/2016 Tdap 01/17/2021 Surgical History Surgery Date Site/Laterality Comments TONSILLECTOMY Tonsillectomy APPENDECTOMY Appendectomy CHOLECYSTECTOMY Cholecystectomy OTHER SURGICAL HISTORY endometrial polyp: partial hysterectomy (ovaries intact) HERNIA REPAIR Hernia repair OTHER SURGICAL HISTORY Pulmonary nodules/OGD: Stable on serial imaging ([facility]) [place] UPPER GI AIR CONTRAST W KUB 02/24/2018 Bilateral Medical History Medical History Date Comments Hx Other Medical endometrial nolan yp; Comments: [facility] 08/21/2015 - Hx Other Medical 12/2013 Pulmonary nodul es/OGD; Comments: [facility] 09/24/2015 - Hyperlipidemia 20150821 Hyperlipidemia, unspecified hyperlipidemia type; Outcome: resolved Gastroesophageal reflux disease [id number] Gastroesophageal reflux disease, esophagitis prese; Outcome: resolved HTN (hypertension) Generalized anxiety disorder Psoriasis Vitamin D deficiency Acute right-sided low back p ain with right-sided sciatica Cobalamin deficiency Neck pain Primary osteoarthritis of both knees Multiple pulmonary nodules 08/21/2015 1/15: Found incidentally on CT-stable over serial imaging, considered benign Family History Medical History Relation Name Comments Melanoma Brother Melanoma; Diabetes Daughter 1 Family history of diabetes mellitus - (Added by TW Conv) Arthritis Daughter 2 Family history of arthritis - (Added by TW Conv) Car Accident Father MVA; Arthritis Mother Family history of arthritis - (Added by TW Conv) Breast cancer Mother Cancer, breast ; Cancer Mother Family history of malignant neoplasm - (Added by TW Conv) Diabetes Mother Family history of diabetes mellitus - (Added by TW Conv) Breast cancer Sister 1 Cancer, breast ; Diabetes Sister 2 Family history of diabetes mellitus - (Added by TW Conv) Arthritis Sister 3 Family history of arthritis - (Added by TW Conv) Cancer Sister 4 Family history of malignant neoplasm - (Added by TW Conv) Relation Name Status Comments Brother Daughter 1 Daughter 2 Father Mother Sister 1 Sister 2 Sister 3 Sister 4 Social History Tobacco Use Types Packs/Day Years Used Date Smoking Tobacco: Never Smokeless Tobacco: Never Tobacco Cessation:Counseling Given: Not Answered Alcohol Use Standard Drinks/Week Comments Yes 0 (1 standard drink = 0.6 oz pur e alcohol) AUDIT-C Answer Date Recorded Q1: How often do you have a drink containing alc ohol? Monthly or less 10/29/2023 Q2: How many drinks containi ng alcohol do you have on a typical day when you are drinking? 1 or 2 10/29/2023 Q3: How often do you have si x or more drinks on one occasion? Never 10/29/2023 PHQ-2 Answer Date Recorded PHQ-2 Total Score (If total score is 3 or more points, staff should administer the PHQ-9) 0 10/30/2024 Exercise Vital Sign Answer Date Recorde d On average, how many days pe r week do you engage in moderate to strenuous exercise (like a brisk walk)? 0 days Minutes of Exercise per Session Not on file 10/29/2023 Comments Unknown Sex and Gender Information Value Date Recorded Sex Assigned at Not on file Legal Sex Female 3:54 AM PROPELLER LAYOUT WORKER Gender Identity Not on file Sexual Orientation Not on file Occupation Industry Job Start Date Job End Date [employer] Not on file Not on file Not on file Obstetrics History Last Filed Vital Signs Vital Sign Reading Time Taken Comments Blood Pressure 136/66 10/30/2024 1:40 PM CDT Pulse 53 10/30/2024 1:40 PM CDT Temperature 36.4 C (97.5 F) 10/30/2024 1:40 PM CDT Respiratory Rate 17 04/22/2022 11:39 AM CDT Oxygen Saturation 99% 10/30/2024 1:40 PM CDT Inhaled Oxygen Concentration - - Weight 70.8 kg (156 lb) 10/30/2024 1:40 PM CDT Height 162.6 cm (5' 4.02) 10/30/2024 1:40 PM CD T Body Mass Index 26.76 10/30/2024 1:40 PM CDT Plan of Treatment Health Maintenance Due Date Last Done Comments Zoster Vaccine (1 of 2) 10/27/1997 Covid-19 Vaccine (2 2023-2 5 season) 2024 03/27/2021 Depression Screening 10/30/2025 10/30/2024, 10/29/2023, 10/19/2022, Additional history exists Fall Risk Assessment 10/30/2025 10/30/2024, 10/29/2023, 10/19/2022, Additional history exists Well Visit 65+ 10/30/2025 10/30/2024, 10/01, 10/19/2022, Additional history exists DTaP/Tdap/Td Vaccine (2 - Td or Tdap) 01/17/2031 01/17/2021 Hepatitis C Screening Completed 10/01/2016 Pneumococcal vaccine 65+ Completed 10/01/2016, 08/03 Colon Cancer Screening-CT Colonography Discontinued 11/25/2016 Colon Cancer Screening-Colonoscopy Discontinued 11/25/2016 Colon Cancer Screening-DNA Stool Discontinued 11/26/19 17 Colon Cancer Screening-FIT Discontinued 11/25/2016 Colon Cancer Screening-FOBT Discontinued 11/25/2016 Colon Cancer Screening-Sigmoidoscopy Discontinued 11/25/2016 Colorectal Cancer Screening Discontinued Breast Cancer Screening-Mammogram Discontinued 10/19/2022, 04/23/2021, 01/24/2020, Additional history exists Influenza Vaccine Completed 06/30/2024, , 04/23/2021, Additional history exists Hepatitis B Screening Discontinued Osteoporosis Screening-Bone Density Scan Discontinued Procedures Procedure Name Priority Date/Time Associated Diagnosis Comments EGFR Routine 10/30/2024 2:56 PM CDT Medicare annual wellness visit, subsequent Essential hypertension Cobalamin deficiency Vitamin D deficiency Gastroesophageal reflux disease without esophagitis Generalized anxiety disorder Fatigue, unspecified type History of prolapse of bladder Primary osteoarthritis of both knees DIFFERENTIAL AUTO Routine 10/30/2024 2:5 6 PM CDT Medicare annual wellness visit, subsequent Essential hypertension Cobalamin deficiency Vitamin D deficiency Gastroesophageal reflux disease without esophagitis Generalized anxiety disorder Fatigue, unspecified type History of prolapse of bladder Primary osteoarthritis of both knees VITAMIN B12 Routine 10/30/2024 2:56 PM CDT Medicare annual wellness visit, subsequent Essential hypertension Cobalamin deficiency Vitamin D deficiency Gastroesophageal reflux disease without esophagitis Generalized anxiety disorder Fatigue, unspecified type History of prolapse of bladder Primary osteoarthritis of both knees COMPREHENSIVE METABOLIC PANEL Routine 10/30/2024 2:56 PM CDT Medicare annual wellness visit, subsequent Essential hypertension Cobalamin deficiency Vitamin D deficiency Gastroesophageal reflux disease without esophagitis Generalized anxiety disorder Fatigue, unspecified type History of prolapse of bladder Primary osteoarthritis of both knees CBC WITH AUTO DIFFERENTIAL Routine 10/30/2024 2:56 PM CDT Medicare annual wellness visit, subsequent Essential hypertension Cobalamin deficiency Vitamin D deficiency Gastroesophageal reflux disease without esophagitis Generalized anxiety disorder Fatigue, unspecified type History of prolapse of bladder Primary osteoarthritis of both knees LIPID PANEL Routine 10/30/2024 2:56 PM CDT Medicare annual wellness visit, subsequent Essential hypertension Cobalamin deficiency Vitamin D deficiency Gastroesophageal reflux disease without esophagitis Generalized anxiety disorder Fatigue, unspecified type History of prolapse of bladder Primary osteoarthritis of both knees THYROID FUNCTION CASCADE Routine 10/30/2024 2:56 PM CDT Medicare annual wellness visit, subsequent Essential hypertension Cobalamin deficiency Vitamin D deficiency Gastroesophageal reflux disease without esophagitis Generalized anxiety disorder Fatigue, unspecified type History of prolapse of bladder Primary osteoarthritis of both knees VITAMIN D 25 HYDROXY Routine 10/30/2024 2:56 PM CDT Medicare annual wellness visit, subsequent Essential hypertension Cobalamin deficiency Vitamin D deficiency Gastroesophageal reflux disease without esophagitis Generalized anxiety disorder Fatigue, unspecified type History of prolapse of bladder Primary osteoarthritis of both knees SCREENING MAMMOGRAM BILATERAL W JULES Schedule Routine, Read Routine (OP Routine) 10/19/2022 12:36 PM CDT Encounter for screening mammogram for malignant neoplasm of breast COLONOSCOPY REPORT 11/25/2016 SERUM HEPATITIS C AB Routine 10/01/2016 3:00 PM [employer]OPE[employer]OUT 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 73 m2 Comment: Interpretive Data Reference Interval Normal >/= 90 mL/min/1.73m2 Mildly decreased* 60 - 89 mL/min/1.73m2 Mildly to moderately decreased 45 - 59 mL/min/1.73m2 Moderately to severely decreased 30 - 44 mL/min/1.73m2 Severely decreased 15 - 29 mL/min/1.73m2 Kidney Failure < 15 mL/min/1.73m2 *Relative to young adult level Estimated glomerular filtration rate is determined by the 2020 CKD-EPI equation recommended by the National Kid[employer] (A Unifying Approach to GFR Estimation: Recommendations of the NKF-ASK Task Force on Reassessing the Inclusion of Race in Diagnosing Kidney Disease, JASN 202). The CKD-EPI equation should not be used for patients with unstable renal function and has not been validated in children and those over 70. Current interpretive data was last reviewed 2021. Blood 10/30/2024 2:56 PM CDT 10/30/2024 7:49 PM CDT us Chris Santos MD LAB BLOOD ORDERABLES Final R esult [facility] [address] Department [place] [address] * Differential, auto (10/30/2024 2:56 PM CDT) Neutrophil abs 4.3 1.5 - 6.5 K/cumm Imm gran abs 0.0 0.0 - 0.1 K/cumm [facility] Lymphocyte abs 3.0 0.8 - 3.3 K/cumm [facility] Monocyte abs 0.6 0.2 - 0.8 K/cumm [facility] Eosinophil abs 0.1 0.0 - 0.5 K/cumm [facility] Basophil abs 0.1 0.0 - 0.1 K/cumm [facility] Neutrophil pct 53.0 % [facility] Comment: Interpretive Data Percent cell count reference ranges are not reported, since discordance with absolute values may lead to misinterpretation of CBC data. Current Interpretive Data was last revised on 2017. Imm gran pct 0.2 % [facility] Comment: Interpretive Data Percent cell count reference ranges are not reported, since discordance with absolute values may lead to misinterpretation of CBC data. Current Interpretive Data was last revised on 2017. Lymphocyte pct 37.5 % [facility] Comment: Interpretive Data Percent cell count reference ranges are not reported, since discordance with absolute values may lead to misinterpretation of CBC data. Current Interpretive Data was last revised on 2017. Monocyte pct 7.5 % [facility] Comment: Interpretive Data Percent cell count reference ranges are not reported, since discordance with absolute values may lead to misinterpretation of CBC data. Current Interpretive Data was last revised on 2017. Eosinophil pct 0.9 % [facility] Comment: Interpretive Data Percent cell count reference ranges are not reported, since discordance with absolute values may lead to misinterpretation of CBC data. Current Interpretive Data was last revised on 2017. Basophil pct 0.9 % [facility] Comment: Interpretive Data Percent cell count reference ranges are not reported, since discordance with absolute values may lead to misinterpretation of CBC data. Current Interpretive Data was last revised on 2017. Blood 10/30/2024 2:56 PM CDT 10/30/2024 6:49 PM CDT Chris Santos MD LAB BLOOD ORDERABLES Final R esult Performing Organization Address [facility] [[email or web address]] Co de Phone Number [facility] [address] [facility] [email or web address] [address] * Thyroid Function [place] (10/30/2024 2:56 PM CDT) [facility] TSH 1.09 0.30 - 4.20 mcIUnit/mL Blood 10/30/2024 2:56 PM CDT 10/30/2024 7:49 PM CDT Chris Santos MD LAB BLOOD ORDERABLES Final R esult Performing Organization Address [facility] [[email or web address]] Co de Phone Number [facility] [address] [facility] [email or web address] [address] * CBC with auto differential (10/30/2024 2:56 PM CDT) [facility] WBC 8.0 3.8 - 9.9 K/cumm Hgb 13.5 11.9 - 15.5 g/dL [facility] Hct 41.0 35.6 - 45.5 % [facility] Plt 286 150 - 400 K/cumm [facility] MPV 10.4 9.1 - 12.[address] [facility] RBC 4.26 3.90 - 5.20 M/cumm [facility] MCV 96.2 81.3 - 96.[address] [facility] MCH 31.7 27.1 - 33.[address] [facility] MCHC 32.9 32.3 - 35.7 g/dL [facility] RDW CV 12.6 11.1 - 14.9 % [facility] RDW SD 44.6 35.7 - 48.[address] [facility] NRBC abs 0.00 0.00 - 0.01 K/cumm [facility] Blood 10/30/2024 2:56 PM CDT 10/30/2024 6:49 PM CDT Chris Santos MD LAB BLOOD ORDERABLES Final R esult Performing Organization Address [facility] [[email or web address]] Co de Phone Number [facility] [address] [facility] [email or web address] [place], [place] [id number] * Vitamin D 25 hydroxy (10/30/2024 2:56 PM CDT) Pathologist [facility] Vitamin D 25-OH 40 30 - 80 ng/mL Blood 10/30/2024 2:56 PM CDT 10/30/2024 7:49 PM CDT Chris Santos MD LAB BLOOD ORDERABLES Final R esult Performing Organization Address [facility] [[email or web address]] Co de Phone Number [facility] [address] [facility] [email or web address] [place], [place] [id number] * Vitamin B12 (10/30/2024 2:56 PM CDT) [facility] Vitamin B12 340 230 - 1,250 pg/mL Blood 10/30/2024 2:56 PM CDT 10/30/2024 7:49 PM CDT us Chris Santos MD LAB BLOOD ORDERABLES Final R esult Performing Organization Address [facility] [[email or web address]] Co de Phone Number [facility] [address] [facility] [email or web address] [place], [place] [id number] * (ABNORMAL) Lipid panel (10/30/2024 2:56 PM CDT) [facility] Cholesterol 170 30 - 199 mg/dL Comment: Interpretive Data Ages < or = 19 years Acceptable: <170 mg/dL Borderline high: 170-199 mg/dL High: >or= 200 mg/dL Ages > or = 20 years Desirable: <200 mg/dL Borderline high: 200-239 mg/dL High: >or= 240 mg/dL Literature References: 1. Expert Panel on Integrated Guidelines for Cardiovascular Health and Risk Reduction in Children and Adolescents. Pediatrics 2011;128:S213 2. NCEP Expert Panel. Circulation 2004;110:227 Current Interpretive Data was last revised on 2018. Triglycerides 345(H) <=149 mg/dL [facility] Comment: Interpretive Data Ages < or = 9 years Acceptable: <75 mg/dL Borderline high: 75-99 mg/dL High: >or= 100 mg/dL Ages 10 to 20 years Acceptable: <90 mg/dL Borderline high: 90-129 mg/dL High: >or= 130 mg/dL Ages > or = 20 years Desirable: <150 mg/dL Borderline high: 150-199 mg/dL High: 200-499 mg/dL Very high: >or= 499 mg/dL Literature References: 1. Expert Panel on Integrated Guidelines for Cardiovascular Health and Risk Reduction in Children and Adolescents. Pediatrics 2011;128:S213 2. NCEP Expert Panel. Circulation 2004;110:227 Current Interpretive Data was last revised on 2018. HDL 37(L) >=40 mg/dL [facility] Comment: Interpretive Data Ages < or = 19 years Acceptable: >45 mg/dL Borderline low: 40-45 mg/dL Low: <40 mg/dL Ages > or = 20 years Desirable: >or= 60 mg/dL Low: <40 mg/dL Literature References: 1. Expert Panel on Integrated Guidelines for Cardiovascular Health and Risk Reduction in Children and Adolescents. Pediatrics 2011;128:S213 2. NCEP Expert Panel. Circulation 2004;110:227 Current Interpretive Data was last revised on 2018. LDL, calculated 77 <=129 mg/dL [facility] Comment: Interpretive Data Ages < or = 19 years Acceptable: <110 mg/dL Borderline high: 110-129 mg/dL High: >or= 130 mg/dL Ages > or = 20 years Optimal: <100 mg/dL Near optimal: 100-129 mg/dL Borderline high: 130-159 mg/dL High: >160 mg/dL Calculated using the Gerard LDL-C estimating equation. This equation was implemented on 2024. Prior to this date LDL-C was estimated using the Friedewald equation. Literature References: 1. Expert Panel on Integrated Guidelines for Cardiovascular Health and Risk Reduction in Children and Adolescents. Pediatrics 2011;128:S213 2. NCEP Expert Panel. Circulation 2004;110:227 3. Gerard Pathak et al. CHRISTIANO Cardiol. 2020 November 30;5(5):540-548. doi: 10.1001/[email or web address] Current Interpretive Data was last revised on 2024. Non-HDL Cholesterol 133 mg/dL [facility] Comment: Interpretive Data Ages < or = 19 years Acceptable: <120 mg/dL Borderline high: 120-144 mg/dL High: >145 mg/dL Ages > or = 20 years When triglycerides are >200 mg/dL, Non-HDL cholesterol is a secondary target of therapy with treatment goals that are 30 mg/dL greater than the LDL cholesterol target. Literature References: 1. Expert Panel on Integrated Guidelines for Cardiovascular Health and Risk Reduction in Children and Adolescents. Pediatrics 2011;128:S213 2. NCEP Expert Panel. Circulation 2004;110:227 Current Interpretive Data was last revised on 2018. Chol/HDL ratio [address] [facility] Blood 10/30/2024 2:56 PM CDT 10/30/2024 7:49 PM CDT us Chris Santos MD LAB BLOOD ORDERABLES Final R esult [facility] [address] Department [place] [address] * Comprehensive metabolic panel (10/30/2024 2:56 PM CDT) Sodium 141 135 - 145 mmol/L Potassium, pl 3.7 3.3 - 4.9 mmol/L [facility] Chloride 100 97 - 110 mmol/L [facility] CO2 27 22 - 32 mmol/L [facility] Anion gap 14 2 - 15 mmol/L [facility] BUN 15 6 - 25 mg/dL [facility] Creatinine 0.79 0.60 - 1.10 mg/dL [facility] Glucose 98 70 - 199 mg/dL [facility] Comment: Interpretive Data Fasting glucose >/= 126 mg/dl is diagnostic for diabetes. Fasting is defined as no caloric intake for at least 8 hours. Fasting glucose between 100 mg/dl to 125 mg/dl is diagnostic of prediabetes. In a patient with classic symptoms of hyperglycemia or hyperglycemic crisis, a random glucose >/= 200 mg/dl is diagnostic for diabetes. In the absence of unequivocal hyperglycemia, results should be confirmed by repeat testing. The classification and Diagnosis of Diabetes Diabetes Care 2021; 46: S19-S40. Current interpretive data was last revised 2022. Calcium 9.3 8.5 - 10.3 mg/dL [facility] Bilirubin, total 0.4 0.1 - 1.2 mg/dL [facility] Protein, pl 7.4 6.5 - 8.5 g/dL [facility] Albumin 4.2 3.5 - 5.0 g/dL [facility] Alk phos 68 40 - 130 Units/L [facility] ALT 11 7 - 45 Units/L [facility] AST 19 10 - 45 Units/L [facility] Blood 10/30/2024 2:56 PM CDT 10/30/2024 7:49 PM CDT us Chris Santos MD LAB BLOOD ORDERABLES Final R esult [facility] [address] Department [place] [address] * Screening Mammogram Bilateral W Jules (10/19/2022 12:36 PM CDT) Anatomical Region Laterality Modality Breast Bilateral Mammography Narrative 10/19/2022 3:08 PM CDT Examination: Screening Mammogram Bilateral W Jules: 10/19/22 Clinical: Encounter for screening mammogram for malignant neoplasm of breast. Prior Study Comparisons: Comparison was made to the prior available relevant studies at the time of interpretation. Findings: Bilateral No significant masses, malignant type calcifications, skin thickening, nipple retraction, or significant lymphadenopathy is noted in either breast. The CAD review showed no significant findings. The breasts have scattered areas of fibroglandular density. The patient will be notified of results by letter. Impression: BI-RADS ATLAS category (overall): 1 - Negative There is no mammographic evidence of malignancy. Routine Screening Mammogram in 1 Yr is recommended for bilateral Overall Assessment: 1 - Negative us Yany Johnson SHOPPING INSPECTOR IMG MAMMO PROCEDURES Final Resul t * COLONOSCOPY REPORT (11/25/2016) Anatomical Region Laterality Modality Other Narrative 11/25/2016 Ordered by an unspecified provider. Historical Provider GI PROCEDURE ORDERABLES F inal Result * Serum Hepatitis C ab (10/01/2016 3:00 PM [employer]ER [employer]AYOUT WORKER) HCV ab Non-Reacti ve Non-Reacti ve CDR HISTORICAL RESULTS Serum 10/01/2016 3:00 PM [employer]OPE[employer]ER [employer]OUT WORKER us Chris Santos MD LAB BLOOD ORDERABLES Final R esult CDR HISTORICAL RESULTS from Last 3 Months or Most Recently Relevant to Health Maintenance Insurance [facility] Care Teams Wastewater Analyst Relationship Specialty [place] [address] [place] [address] PCP - General Internal Medicine 10/30/24
--- OUTSIDE RECORDS SUMMARY | 2025-01-10 14:38 | XMS_ITS | Referral Summary ---
Author Organization [facility] Address [address] [place] [address] Care Team Providers Care Medical Superintendent Name Role Phone Chris Santos MD Primary Care Provider [phone] Encounters Date Type Department Care Team Description 10/31/2024 Results Follow-Up [facility] Primary Care at [address] [phone] Chris Santos MD Vitamin D 25 hydroxy, Thyroid Function [place], Lipid panel, Additional followed-up results: 5 10/30/2024 3:00 PM CDT Lab [facility] [address] [place] [phone] Medicare annual wellness visit, subsequent; Essential hypertension; Cobalamin deficiency; Vitamin D deficiency; Gastroesophageal reflux disease without esophagitis; Generalized anxiety disorder; Fatigue, unspecified type; History of prolapse of bladder; Primary osteoarthritis of both knees 10/30/2024 2:30 PM CDT Office Visit [facility] Primary Care at [address] [phone] Chris Santos MD Medicare annual wellness visit, subsequent (Primary Dx); Essential hypertension; Cobalamin deficiency; Vitamin D deficiency; Gastroesophageal reflux disease without esophagitis; Generalized anxiety disorder; Fatigue, unspecified type; History of prolapse of bladder; Primary osteoarthritis of both knees from Last 3 Months Allergies Active Allergy Reactions Criticality Noted Date Comments Codeine Pentazocine Sulfa (Sulfonamide Antibiotics) Anaphylaxis Reaction: Anaphylaxis, [place] Compound Unknown 11/30/2017 Medications cyanocobalamin (Vitamin B-12) [...] 09/20/2023 Assessment & Plan (08/18/2024 12:19 PM SENIOR ENGINEERING TEAM LEADER): New problem after falling, although similar complaints [...] precautions. Assessment & Plan (09/20/2023 11:52 AM SENIOR ENGINEERING TEAM LEADER): Cannot exclude fracture given recent fall-x-ray today. [...] 09/20/2023 Assessment & Plan (09/20/2023 11:53 AM SENIOR ENGINEERING TEAM LEADER): X-ray today to exclude fracture-sees a plan [...] CDT): Re-evaluate today since recently switched to tdzo-[id number]-rhpukxh supplement. Assessment & Plan (10/19/2022 9:56 PM CDT): Re-evaluate vitamin-D. Slightly elevated at 82. Discontinue prescription supplement and recommend [id number]-flg-[id number] vitamin D3 1000 IU daily. Assessment & Plan (10/16/2021 4:33 PM CDT): Re-evaluate need for supplements today Assessment & Plan (10/07/2018 8:28 AM SENIOR ENGINEERING TEAM LEADER): Chronic. Re-evaluate today Psoriasis 09/16/2017 Tremor 09/16/2017 [...] BuSpar. Assessment & Plan (10/07/2018 8:27 AM SENIOR ENGINEERING TEAM LEADER): Chronic and stable. Reviewed risks of PPI. [...] today Assessment & Plan (10/07/2018 8:26 AM SENIOR ENGINEERING TEAM LEADER): Chronic. Re-evaluate today Generalized anxiety disorder 01/30/2016 Assessment & Plan (10/30/2024 2:38 PM CDT): Fair control with some increased situational stress. She appears to be coping well. Continue current medication. Addressing 's medical problems today Assessment & Plan (08/18/2024 12:18 PM SENIOR ENGINEERING TEAM LEADER): Chronic and stable on escitalopram. Assessment & [...] supportively Assessment & Plan (08/18/2024 12:17 PM SENIOR ENGINEERING TEAM LEADER): Chronic, pain is uncontrolled. Offered steroid injection [...] pain. Assessment & Plan (10/07/2018 8:28 AM SENIOR ENGINEERING TEAM LEADER): Chronic, uncontrolled Trial of topical diclofenac gel [...] medication Assessment & Plan (08/18/2024 12:17 PM SENIOR ENGINEERING TEAM LEADER): Chronic, controlled. Continue current diltiazem and hydrochlorothiazide. [...] office. Assessment & Plan (10/07/2018 8:26 AM SENIOR ENGINEERING TEAM LEADER): Controlled. Continue present regimen Resolved Problems Problem Noted Date Diagnosed Date Resolved Date History of fall 09/20/2023 10/30/2024 Assessment & Plan (09/20/2023 11:53 AM SENIOR ENGINEERING TEAM LEADER): Discussed awareness and fall risk reduction. Note [...] to the ER BMI 28.0-28.9,adult 03/19/2020 04/22/20 Assessment & Plan (03/19/2020 1:28 PM CDT): [...] today. 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 0 04/22/2022 Immunizations Immunization Administration Dates Next Due Influenza, Quadrivalent, Hig h Dose, Preservative Free, Intrr 05/18/2022,04/23/2021,07/08/2020 Influenza, Quadrivalent, Spl it, Preservative Free, Intramuscular 06/08/2017 Influenza, Trivalent, High D ose, Split, Preservative Free, Intramuscular 06/30/2024,04/10/2019,04/07/2018,10/01,08/21/2015 Influenza, Unspecified 07/28/2014,04/27/2013,06/2013 Pneumococcal Conjugate PCV 13 08/21/2015 Pneumococcal Polysaccharide PPV23 10/01/2016 Tdap 01/17/2021 Social History Tobacco Use Types Packs/Day Years [...] on file Legal Sex Female 3:54 AM SENIOR ENGINEERING TEAM LEADER Gender Identity Not on file Sexual Orientation Not on file Occupation Industry Job Start Date Job End Date [employer] Not on file Not on file Not on file Last Filed Vital Signs Vital Sign Reading [...] 10/30/2024 1:40 PM CDT Plan of Treatment Not on file Procedures Procedure Name Priority Date/Time Associated Diagnosis [...] of both knees SCREENING MAMMOGRAM BILATERAL W DERECK Schedule Routine, Read Routine (OP Routine) 10/19/2022 12:36 PM CDT Encounter for screening mammogram for malignant neoplasm of breast COLONOSCOPY REPORT 11/25/2016 SERUM HEPATITIS C AB Routine 10/01/2016 3:00 PM SENIOR ENGINEERING TEAM LEADER from Last 3 Months or Most Recently [...] MD LAB BLOOD ORDERABLES Final R esult [facility] [address] Department [place] [address] * Differential, auto (10/30/2024 2:56 PM CDT) Neutrophil abs 4.3 1.5 - 6.5 K/cumm Imm gran abs 0.0 0.0 - 0.1 K/cumm [facility] Lymphocyte abs 3.0 0.8 - 3.3 K/cumm [facility] Monocyte abs 0.6 0.2 - 0.8 K/cumm [facility] Eosinophil abs 0.1 0.0 - 0.5 K/cumm [facility] Basophil abs 0.1 0.0 - 0.1 K/cumm [facility] Neutrophil pct 53.0 % [facility] Comment: Interpretive Data Percent cell count reference ranges are not reported, since discordance with absolute values may lead to misinterpretation of CBC data. Current Interpretive Data was last revised on 2017. Imm gran pct 0.2 % [facility] Comment: Interpretive Data Percent cell count reference ranges are not reported, since discordance with absolute values may lead to misinterpretation of CBC data. Current Interpretive Data was last revised on 2017. Lymphocyte pct 37.5 % [facility] Comment: Interpretive Data Percent cell count reference ranges are not reported, since discordance with absolute values may lead to misinterpretation of CBC data. Current Interpretive Data was last revised on 2017. Monocyte pct 7.5 % [facility] Comment: Interpretive Data Percent cell count reference ranges are not reported, since discordance with absolute values may lead to misinterpretation of CBC data. Current Interpretive Data was last revised on 2017. Eosinophil pct 0.9 % [facility] Comment: Interpretive Data Percent cell count reference ranges are not reported, since discordance with absolute values may lead to misinterpretation of CBC data. Current Interpretive Data was last revised on 2017. Basophil pct 0.9 % [facility] Comment: Interpretive Data Percent cell count reference ranges are not reported, since discordance with absolute values may lead to misinterpretation of CBC data. Current Interpretive Data was last revised on 2017. Blood 10/30/2024 2:56 PM CDT 10/30/2024 6:49 PM CDT Chris Santos MD LAB BLOOD ORDERABLES Final R esult Performing Organization Address City/[facility]/ZIP Co de Phone Number [place] [id number] [employer] [place], [place] [id number] * Thyroid Function [place] (10/30/2024 2:56 PM CDT) TSH 1.09 0.30 - 4.20 mcIUnit/mL Blood 10/30/2024 2:56 PM CDT 10/30/2024 7:49 PM CDT Chris Santos MD LAB BLOOD ORDERABLES Final R esult Performing Organization Address City/[facility]/ZIP Co de Phone Number [facility] [address] Department [place] [address] * CBC with auto differential (10/30/2024 2:56 PM CDT) [facility] WBC 8.0 3.8 - 9.9 K/cumm Hgb 13.5 11.9 - 15.5 g/dL [facility] Hct 41.0 35.6 - 45.5 % [facility] Plt 286 150 - 400 K/cumm [facility] MPV 10.4 9.1 - 12.3 fL [facility] RBC 4.26 3.90 - 5.20 M/cumm [facility] MCV 96.2 81.3 - 96.4 fL [facility] MCH 31.7 27.1 - 33.3 pg [facility] MCHC 32.9 32.3 - 35.7 g/dL [facility] RDW CV 12.6 11.1 - 14.9 % [facility] RDW SD 44.6 35.7 - 48.1 fL [facility] NRBC abs 0.00 0.00 - 0.01 K/cumm [facility] Blood 10/30/2024 2:56 PM CDT 10/30/2024 6:49 PM CDT Chris Santos MD LAB BLOOD ORDERABLES Final R esult Performing Organization Address City/[facility] Co de Phone Number [facility] [address] [employer] [place], [place] [id number] * Vitamin D 25 hydroxy (10/30/2024 2:56 PM CDT) [facility] Vitamin D 25-OH 40 30 - 80 ng/mL Blood 10/30/2024 2:56 PM CDT 10/30/2024 7:49 PM CDT Chris Santos MD LAB BLOOD ORDERABLES Final R esult [facility] [address] [facility] [place] [address] * Vitamin B12 (10/30/2024 2:56 PM CDT) Vitamin B12 340 230 - 1,250 pg/mL Blood 10/30/2024 2:56 PM CDT 10/30/2024 7:49 PM CDT us Chris Santos MD LAB BLOOD ORDERABLES Final R esult [facility] [address] Department [place] [address] * (ABNORMAL) Lipid panel (10/30/2024 2:56 PM CDT) Cholesterol 170 30 - 199 mg/dL Comment: [...] revised on 2018. Triglycerides 345(H) <=149 mg/dL [facility] Comment: Interpretive Data Ages < or = [...] revised on 2018. HDL 37(L) >=40 mg/dL [facility] Comment: Interpretive Data Ages < or = [...] on 2018. LDL, calculated 77 <=129 mg/dL [facility] Comment: Interpretive Data Ages < or = [...] revised on 2024. Non-HDL Cholesterol 133 mg/dL [facility] Comment: Interpretive Data Ages < or = [...] last revised on 2018. Chol/HDL ratio 5 [facility] Blood 10/30/2024 2:56 PM CDT 10/30/2024 7:49 PM CDT us Chris Santos MD LAB BLOOD ORDERABLES Final R esult Performing Organization Address City/[facility] Co de Phone Number [facility] [address] Department [place] [address] * Comprehensive metabolic panel (10/30/2024 2:56 PM CDT) Sodium 141 135 - 145 mmol/L Potassium, pl 3.7 3.3 - 4.9 mmol/L [facility] Chloride 100 97 - 110 mmol/L [facility] CO2 27 22 - 32 mmol/L [facility] Anion gap 14 2 - 15 mmol/L [facility] BUN 15 6 - 25 mg/dL [facility] Creatinine 0.79 0.60 - 1.10 mg/dL [facility] Glucose 98 70 - 199 mg/dL [facility] Comment: Interpretive Data Fasting glucose >/= 126 [...] classification and Diagnosis of Diabetes Diabetes Care 202; 46: S19-S40. Current interpretive data was last revised 2022. Calcium 9.3 8.5 - 10.3 mg/dL [facility] Bilirubin, total 0.4 0.1 - 1.2 mg/dL [facility] Protein, pl 7.4 6.5 - 8.5 g/dL [facility] Albumin 4.2 3.5 - 5.0 g/dL [facility] Alk phos 68 40 - 130 Units/L [facility] ALT 11 7 - 45 Units/L [facility] AST 19 10 - 45 Units/L [facility] Blood 10/30/2024 2:56 PM CDT 10/30/2024 7:49 PM CDT Chris Santos MD LAB BLOOD ORDERABLES Final R esult [facility] [address] Department [place] [address] * Screening Mammogram Bilateral [place] (10/19/2022 12:36 PM CDT) Anatomical Region Laterality Modality Breast Bilateral Mammography Narrative 10/19/2022 3:08 PM CDT Examination: Screening Mammogram Bilateral W Dereck: 10/19/22 Clinical: Encounter for screening mammogram for [...] Assessment: 1 - Negative us Yany Johnson TUB OPERATOR IMG MAMMO PROCEDURES Final Resul t * COLONOSCOPY REPORT (11/25/2016) Anatomical Region Laterality Modality Other Narrative 11/25/2016 Ordered by an unspecified provider. us Historical Provider GI PROCEDURE ORDERABLES F inal Result * Serum Hepatitis C ab (10/01/2016 3:00 PM SENIOR ENGINEERING TEAM LEADER) HCV ab Non-Reacti ve Non-Reacti ve CDR HISTORICAL RESULTS Serum 10/01/2016 3:00 PM SENIOR ENGINEERING TEAM LEADER us Chris Santos MD LAB BLOOD ORDERABLES Final R esult CDR HISTORICAL RESULTS from Last 3 Months or Most Recently Relevant to Health Maintenance Insurance [employer] Care Teams Medical Superintendent Relationship Specialty [place] [id number] [id number] PCP - General Internal Medicine 10/30/24
--- OUTSIDE RECORDS SUMMARY | 2025-01-10 15:48 | XMS_ITS | Encounter Summary ---
Author Organization [facility] Address [address] [place] [address] Phone Care Team Providers Care Finish Production Manager Name Role Phone Chris Santos MD Primary Care Provider [phone] Dayana Bains MA Unavailable [phone] Tory Gold RN Unavailable [phone] Jen Faulkner [facility] Unavailable Chris Santos MD Primary Care Provider [phone] Encounter Details Date Type Department Care Team (Late st Contact Info) Description 10/05/2017 Orders Only [facility] ProviderCorrina MD [address] [place] [id number] Social History Tobacco Use Types Packs/Day Years Used Date Smoking Tobacco: Never Smokeless Tobacco: Never Alcohol Use Standard Drinks/Week Comments Yes 0 (1 standard drink = 0.6 oz pur e alcohol) Comments Unknown Sex and Gender Information Value Date Recorded Sex Assigned at Not on file Legal Sex Female 3:54 AM DIAMOND SAW OPERATOR Gender Identity Not on file Sexual Orientation Not on file Occupation Industry Job Start Date Job End Date [employer] Not on file Not on file Not on file documented as of this encounter Plan of Treatment Not on file documented as of this encounter Procedures Procedure Name Priority Date/Time Associated Diagnosis Comments DISCHARGE LABORATORY CUMULATIVE REPORT 10/05/2017 12:00 AM DIAMOND SAW OPERATOR documented in this encounter Results * DISCHARGE LABORATORY CUMULATIVE REPORT (10/05/2017 12:00 AM DIAMOND SAW OPERATOR) Narrative 10/05/2017 12:00 AM DIAMOND SAW OPERATOR Ordered by an unspecified provider. us Historical Provider LAB BLOOD ORDERABLES Cammie l Result documented in this encounter Visit Diagnoses Not on filedocumented in this encounter Care Teams Finish Production Manager Relationship Specialty Start Date End Date Chris Santos MD PCP - General 10/30/16 10/29/24 [place] [id number] [address] [place] [address] PCP - General Internal Medicine 10/30/24 Dayana Bains MA [address] [facility] [address] [place], [place] [id number] [employer] Floor [employer] 10/26/17 10/27/17 Tory Gold, RN [address] [facility] [address] [place] [address] Nutritional Assistant 01/12/19 01/12/19 Jen Faulkner RPh [address] [place], [place] [id number] Pharmacist Pharmacy 02/27/22 02/27/22 documented as of this encounter
--- OUTSIDE RECORDS SUMMARY | 2025-01-10 15:48 | XMS_ITS | Referral Summary ---
Author Organization [facility] Address [address] [place] [address] Care Team Providers Care Poultry Cutter Name Role Phone Chris Santos MD Primary Care Provider [phone] Encounters Date Type Department Care Team Description 10/31/2024 Results Follow-Up [facility] Primary Care at [address] [phone] Chris Santos MD Vitamin D 25 hydroxy, Thyroid Function Ness, Lipid panel, Additional followed-up results: 5 10/30/2024 3:00 PM CDT Lab [facility] [address] [place] [phone] Medicare annual wellness visit, subsequent; Essential hypertension; Cobalamin deficiency; Vitamin D deficiency; Gastroesophageal reflux disease without esophagitis; Generalized anxiety disorder; Fatigue, unspecified type; History of prolapse of bladder; Primary osteoarthritis of both knees 10/30/2024 2:30 PM CDT Office Visit [facility] Primary Care at [address] [phone] Chris Santos MD Medicare annual [...] 09/20/2023 Assessment & Plan (08/18/2024 12:19 PM INDEPENDENT LIVING INSTRUCTOR): New problem after falling, although similar complaints [...] precautions. Assessment & Plan (09/20/2023 11:52 AM INDEPENDENT LIVING INSTRUCTOR): Cannot exclude fracture given recent fall-x-ray today. [...] 09/20/2023 Assessment & Plan (09/20/2023 11:53 AM INDEPENDENT LIVING INSTRUCTOR): X-ray today to exclude fracture-sees a plan [...] CDT): Re-evaluate today since recently switched to chne-pri-pumnyny supplement. Assessment & Plan (10/19/2022 9:56 PM CDT): Re-evaluate vitamin-D. Slightly elevated at 82. Discontinue prescription supplement and recommend [id number]-wbygjlh vitamin D3 1000 IU daily. Assessment & Plan (10/16/2021 4:33 PM CDT): Re-evaluate need for supplements today Assessment & Plan (10/07/2018 8:28 AM INDEPENDENT LIVING INSTRUCTOR): Chronic. Re-evaluate today Psoriasis 09/16/2017 Tremor 09/16/2017 [...] BuSpar. Assessment & Plan (10/07/2018 8:27 AM INDEPENDENT LIVING INSTRUCTOR): Chronic and stable. Reviewed risks of PPI. [...] today Assessment & Plan (10/07/2018 8:26 AM INDEPENDENT LIVING INSTRUCTOR): Chronic. Re-evaluate today Generalized anxiety disorder 01/30/2016 Assessment & Plan (10/30/2024 2:38 PM CDT): Fair control with some increased situational stress. She appears to be coping well. Continue current medication. Addressing 's medical problems today Assessment & Plan (08/18/2024 12:18 PM INDEPENDENT LIVING INSTRUCTOR): Chronic and stable on escitalopram. Assessment & [...] supportively Assessment & Plan (08/18/2024 12:17 PM INDEPENDENT LIVING INSTRUCTOR): Chronic, pain is uncontrolled. Offered steroid injection [...] pain. Assessment & Plan (10/07/2018 8:28 AM INDEPENDENT LIVING INSTRUCTOR): Chronic, uncontrolled Trial of topical diclofenac gel [...] medication Assessment & Plan (08/18/2024 12:17 PM INDEPENDENT LIVING INSTRUCTOR): Chronic, controlled. Continue current diltiazem and hydrochlorothiazide. [...] office. Assessment & Plan (10/07/2018 8:26 AM INDEPENDENT LIVING INSTRUCTOR): Controlled. Continue present regimen Resolved Problems Problem Noted Date Diagnosed Date Resolved Date History of fall 09/20/2023 10/30/2024 Assessment & Plan (09/20/2023 11:53 AM INDEPENDENT LIVING INSTRUCTOR): Discussed awareness and fall risk reduction. Note [...] today. Assessment & Plan (10/07/2018 8:27 AM INDEPENDENT LIVING INSTRUCTOR): Re-evaluate today Multiple pulmonary nodules 08/21/2015 0 10/09/2019 Overview (10/07/2018): 08/16: Found incidentally on CT-stable over serial imaging, considered benign Assessment & Plan (10/07/2018 8:27 AM INDEPENDENT LIVING INSTRUCTOR): This problem is considered resolved-stable over serial [...] on file Legal Sex Female 3:54 AM INDEPENDENT LIVING INSTRUCTOR Gender Identity Not on file Sexual Orientation [...] HEPATITIS C AB Routine 10/01/2016 3:00 PM INDEPENDENT LIVING INSTRUCTOR from Last 3 Months or Most Recently [...] MD LAB BLOOD ORDERABLES Final R esult [facility] [address] Department [place] [address] * Differential, auto (10/30/2024 2:56 PM CDT) Neutrophil abs 4.3 1.5 - 6.5 K/cumm Imm gran abs 0.0 0.0 - 0.1 K/cumm [facility] Lymphocyte abs 3.0 0.8 - 3.3 K/cumm [facility] Monocyte abs 0.6 0.2 - 0.8 K/cumm [facility] Eosinophil abs 0.1 0.0 - 0.5 K/cumm [facility] Basophil abs 0.1 0.0 - 0.1 K/cumm [facility] Neutrophil pct 53.0 % [facility] Comment: Interpretive Data Percent cell count reference ranges are not reported, since discordance with absolute values may lead to misinterpretation of CBC data. Current Interpretive Data was last revised on 2017. Imm gran pct 0.2 % [facility] Comment: Interpretive Data Percent cell count reference ranges are not reported, since discordance with absolute values may lead to misinterpretation of CBC data. Current Interpretive Data was last revised on 2017. Lymphocyte pct 37.5 % [facility] Comment: Interpretive Data Percent cell count reference ranges are not reported, since discordance with absolute values may lead to misinterpretation of CBC data. Current Interpretive Data was last revised on 2017. Monocyte pct 7.5 % [facility] Comment: Interpretive Data Percent cell count reference ranges are not reported, since discordance with absolute values may lead to misinterpretation of CBC data. Current Interpretive Data was last revised on 2017. Eosinophil pct 0.9 % [facility] Comment: Interpretive Data Percent cell count reference ranges are not reported, since discordance with absolute values may lead to misinterpretation of CBC data. Current Interpretive Data was last revised on 2017. Basophil pct 0.9 % [facility] Comment: Interpretive Data Percent cell count reference ranges are not reported, since discordance with absolute values may lead to misinterpretation of CBC data. Current Interpretive Data was last revised on 2017. Blood 10/30/2024 2:56 PM CDT 10/30/2024 6:49 PM CDT Chris Santos MD LAB BLOOD ORDERABLES Final R esult Performing Organization Address City/[facility]/ZIP Co de Phone Number [place] [id number] [place], [place] [phone] * Thyroid Function Ness (10/30/2024 2:56 PM CDT) TSH 1.09 0.30 - 4.20 mcIUnit/mL Blood 10/30/2024 2:56 PM CDT 10/30/2024 7:49 PM CDT Chris Santos MD LAB BLOOD ORDERABLES Final R esult Performing Organization Address City/[facility]/ZIP Co de Phone Number [facility] [address] [place] [address] * CBC with auto differential (10/30/2024 2:56 PM CDT) [facility] WBC 8.0 3.8 - 9.9 K/cumm Hgb 13.5 11.9 - 15.5 g/dL [facility] Hct 41.0 35.6 - 45.5 % [facility] Plt 286 150 - 400 K/cumm [facility] MPV 10.4 9.1 - 12.3 fL [facility] RBC 4.26 3.90 - 5.20 M/cumm [facility] MCV 96.2 81.3 - 96.4 fL [facility] MCH 31.7 27.1 - 33.3 pg [facility] MCHC 32.9 32.3 - 35.7 g/dL [facility] RDW CV 12.6 11.1 - 14.9 % [facility] RDW SD 44.6 35.7 - 48.1 fL [facility] NRBC abs 0.00 0.00 - 0.01 K/cumm [facility] Blood 10/30/2024 2:56 PM CDT 10/30/2024 6:49 PM CDT Chris Santos MD LAB BLOOD ORDERABLES Final R esult Performing Organization Address City/[facility] Co de Phone Number [facility] [address] [place], [place] [phone] * Vitamin D 25 hydroxy (10/30/2024 2:56 PM CDT) [facility] Vitamin D 25-OH 40 30 - 80 ng/mL Blood 10/30/2024 2:56 PM CDT 10/30/2024 7:49 PM CDT Chris Santos MD LAB BLOOD ORDERABLES Final R esult [facility] [address] [facility] [place] [address] * Vitamin B12 (10/30/2024 2:56 PM CDT) Vitamin B12 340 230 - 1,250 pg/mL Blood 10/30/2024 2:56 PM CDT 10/30/2024 7:49 PM CDT us Chris Santos MD LAB BLOOD ORDERABLES Final R esult [facility] [address] Department [place] [address] * (ABNORMAL) Lipid panel (10/30/2024 2:56 PM [...] revised on 2018. Triglycerides 345(H) <=149 mg/dL [facility] Comment: Interpretive Data Ages < or [...] revised on 2018. HDL 37(L) >=40 mg/dL [facility] Comment: Interpretive Data Ages < or [...] on 2018. LDL, calculated 77 <=129 mg/dL [facility] Comment: Interpretive Data Ages < or [...] revised on 2024. Non-HDL Cholesterol 133 mg/dL [facility] Comment: Interpretive Data Ages < or [...] last revised on 2018. Chol/HDL ratio 5 [facility] Blood 10/30/2024 2:56 PM CDT 10/30/2024 7:49 PM CDT us Chris Santos MD LAB BLOOD ORDERABLES Final R esult Performing Organization Address City/[facility] Co de Phone Number [facility] [address] Department [place] [address] * Comprehensive metabolic panel (10/30/2024 2:56 PM CDT) Sodium 141 135 - 145 mmol/L Potassium, pl 3.7 3.3 - 4.9 mmol/L [facility] Chloride 100 97 - 110 mmol/L [facility] CO2 27 22 - 32 mmol/L [facility] Anion gap 14 2 - 15 mmol/L [facility] BUN 15 6 - 25 mg/dL [facility] Creatinine 0.79 0.60 - 1.10 mg/dL [facility] Glucose 98 70 - 199 mg/dL [facility] Comment: Interpretive Data Fasting glucose >/= [...] 2022. Calcium 9.3 8.5 - 10.3 mg/dL [facility] Bilirubin, total 0.4 0.1 - 1.2 mg/dL [facility] Protein, pl 7.4 6.5 - 8.5 g/dL [facility] Albumin 4.2 3.5 - 5.0 g/dL [facility] Alk phos 68 40 - 130 Units/L [facility] ALT 11 7 - 45 Units/L [facility] AST 19 10 - 45 Units/L [facility] Blood 10/30/2024 2:56 PM CDT 10/30/2024 7:49 PM CDT Chris Santos MD LAB BLOOD ORDERABLES Final R esult [facility] [address] Department [place] [address] * Screening Mammogram Bilateral W Dereck (10/19/2022 [...] Assessment: 1 - Negative us Yany Johnson WHEEL ALIGNMENT TECHNICIAN IMG MAMMO PROCEDURES Final Resul t * COLONOSCOPY REPORT (11/25/2016) Anatomical Region Laterality Modality Other Narrative 11/25/2016 Ordered by an unspecified provider. us Historical Provider GI PROCEDURE ORDERABLES F inal Result * Serum Hepatitis C ab (10/01/2016 3:00 PM INDEPENDENT LIVING INSTRUCTOR) HCV ab Non-Reacti ve Non-Reacti ve CDR HISTORICAL RESULTS Serum 10/01/2016 3:00 PM INDEPENDENT LIVING INSTRUCTOR us Chris Santos MD LAB BLOOD ORDERABLES Final R esult CDR HISTORICAL RESULTS from Last 3 Months or Most Recently Relevant to Health Maintenance Insurance [employer] Care Teams Poultry Cutter Relationship Specialty [place] [id number] [address] PCP - General Internal Medicine 10/30/24
--- OUTSIDE RECORDS SUMMARY | 2025-01-10 15:48 | XMS_ITS | Clinical Summary ---
Author Organization [facility] Address [address] [place] [address] Care Team Providers Care Solid Center Winder Name Role Phone Chris Santos MD Primary [...] 09/20/2023 Assessment & Plan (08/18/2024 12:19 PM HOGSHEAD OPENER): New problem after falling, although similar complaints [...] precautions. Assessment & Plan (09/20/2023 11:52 AM HOGSHEAD OPENER): Cannot exclude fracture given recent fall-x-ray today. [...] 09/20/2023 Assessment & Plan (09/20/2023 11:53 AM HOGSHEAD OPENER): X-ray today to exclude fracture-sees a plan [...] CDT): Re-evaluate today since recently switched to kyyw-iro-woqolga supplement. Assessment & Plan (10/19/2022 9:56 PM CDT): Re-evaluate vitamin-D. Slightly elevated at 82. Discontinue prescription supplement and recommend udkk-voj-ulsjnit vitamin D3 1000 IU daily. Assessment & Plan (10/16/2021 4:33 PM CDT): Re-evaluate need for supplements today Assessment & Plan (10/07/2018 8:28 AM HOGSHEAD OPENER): Chronic. Re-evaluate today Psoriasis 09/16/2017 Tremor 09/16/2017 [...] BuSpar. Assessment & Plan (10/07/2018 8:27 AM HOGSHEAD OPENER): Chronic and stable. Reviewed risks of PPI. [...] today Assessment & Plan (10/07/2018 8:26 AM HOGSHEAD OPENER): Chronic. Re-evaluate today Generalized anxiety disorder 01/30/2016 Assessment & Plan (10/30/2024 2:38 PM CDT): Fair control with some increased situational stress. She appears to be coping well. Continue current medication. Addressing 's medical problems today Assessment & Plan (08/18/2024 12:18 PM HOGSHEAD OPENER): Chronic and stable on escitalopram. Assessment & [...] supportively Assessment & Plan (08/18/2024 12:17 PM HOGSHEAD OPENER): Chronic, pain is uncontrolled. Offered steroid injection [...] pain. Assessment & Plan (10/07/2018 8:28 AM HOGSHEAD OPENER): Chronic, uncontrolled Trial of topical diclofenac gel [...] medication Assessment & Plan (08/18/2024 12:17 PM HOGSHEAD OPENER): Chronic, controlled. Continue current diltiazem and hydrochlorothiazide. [...] office. Assessment & Plan (10/07/2018 8:26 AM HOGSHEAD OPENER): Controlled. Continue present regimen Resolved Problems Problem Noted Date Diagnosed Date Resolved Date History of fall 09/20/2023 10/30/2024 Assessment & Plan (09/20/2023 11:53 AM HOGSHEAD OPENER): Discussed awareness and fall risk reduction. Note [...] today. 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 0 04/22/2022 Encounters Date Type Department Care Team Description 10/31/2024 Results Follow-Up [facility] Primary Care at [place] [id number] [place] [address] [place] [phone] Chris Santos MD Vitamin D 25 hydroxy, Thyroid Function [place], Lipid panel, Additional followed-up results: 5 10/30/2024 3:00 PM CDT Lab [facility] [place] [facility] [id number] [place] [phone] Medicare annual wellness visit, subsequent; Essential hypertension; Cobalamin deficiency; Vitamin D deficiency; Gastroesophageal reflux disease without esophagitis; Generalized anxiety disorder; Fatigue, unspecified type; History of prolapse of bladder; Primary osteoarthritis of both knees 10/30/2024 2:30 PM CDT Office Visit [facility] Primary Care at [address] [place] [address] Chris Santos MD Medicare annual [...] HISTORY Pulmonary nodules/OGD: St[facility] [place] UPPER GI AIR CONTRAST W KUB 02/24/2018 Bilateral Medical History Medical History Date Comments Hx Other Medical endometrial nolan yp; Comments: [facility] 08/21/2015 - Hx Other Medical 12/2013 Pulmonary nodul es/OGD; Comments: [facility] 09/24/2015 - Hyperlipidemia [id number] Hyperlipidemia, unspecified [...] on file Legal Sex Female 3:54 AM HOGSHEAD OPENER Gender Identity Not on file Sexual Orientation [...] HEPATITIS C AB Routine 10/01/2016 3:00 PM HOGSHEAD OPENER from Last 3 Months or Most Recently [...] LAB BLOOD ORDERABLES Final R esult [facility] [address] [place] [address] * Differential, auto (10/30/2024 2:56 PM CDT) Neutrophil abs 4.3 1.5 - 6.5 K/cumm Imm gran abs 0.0 0.0 - 0.1 K/cumm [facility] Lymphocyte abs 3.0 0.8 - 3.3 K/cumm [facility] Monocyte abs 0.6 0.2 - 0.8 K/cumm [facility] Eosinophil abs 0.1 0.0 - 0.5 K/cumm [facility] Basophil abs 0.1 0.0 - 0.1 K/cumm [facility] Neutrophil pct 53.0 % [facility] Comment: Interpretive Data Percent cell count reference ranges are not reported, since discordance with absolute values may lead to misinterpretation of CBC data. Current Interpretive Data was last revised on 2017. Imm gran pct 0.2 % [facility] Comment: Interpretive Data Percent cell count reference ranges are not reported, since discordance with absolute values may lead to misinterpretation of CBC data. Current Interpretive Data was last revised on 2017. Lymphocyte pct 37.5 % [facility] Comment: Interpretive Data Percent cell count reference ranges are not reported, since discordance with absolute values may lead to misinterpretation of CBC data. Current Interpretive Data was last revised on 2017. Monocyte pct 7.5 % [facility] Comment: Interpretive Data Percent cell count reference ranges are not reported, since discordance with absolute values may lead to misinterpretation of CBC data. Current Interpretive Data was last revised on 2017. Eosinophil pct 0.9 % [facility] Comment: Interpretive Data Percent cell count reference ranges are not reported, since discordance with absolute values may lead to misinterpretation of CBC data. Current Interpretive Data was last revised on 2017. Basophil pct 0.9 % [facility] Comment: Interpretive Data Percent cell count reference ranges are not reported, since discordance with absolute values may lead to misinterpretation of CBC data. Current Interpretive Data was last revised on 2017. Blood 10/30/2024 2:56 PM CDT 10/30/2024 6:49 PM CDT Chris Santos MD LAB BLOOD ORDERABLES Final R esult Performing Organization Address [facility] Co de Phone Number [facility] [address] [facility] [employer] [place] [address] * Thyroid Function [place] (10/30/2024 2:56 PM CDT) [facility] TSH 1.09 0.30 - 4.20 mcIUnit/mL Blood 10/30/2024 2:56 PM CDT 10/30/2024 7:49 PM CDT Chris Santos MD LAB BLOOD ORDERABLES Final R esult Performing Organization Address [facility] Co de Phone Number [facility] [address] [facility] [employer] [place] [address] * CBC with auto differential (10/30/2024 2:56 PM CDT) [facility] WBC 8.0 3.8 - 9.9 K/cumm Hgb 13.5 11.9 - 15.5 g/dL [facility] Hct 41.0 35.6 - 45.5 % [facility] Plt 286 150 - 400 K/cumm [facility] MPV 10.4 9.1 - 12.3 fL [facility] RBC 4.26 3.90 - 5.20 M/cumm [facility] MCV 96.2 81.3 - 96.4 fL [facility] MCH 31.7 27.1 - 33.3 pg [facility] MCHC 32.9 32.3 - 35.7 g/dL [facility] RDW CV 12.6 11.1 - 14.9 % [facility] RDW SD 44.6 35.7 - 48.1 fL [facility] NRBC abs 0.00 0.00 - 0.01 K/cumm [facility] Blood 10/30/2024 2:56 PM CDT 10/30/2024 6:49 PM CDT Chris Santos MD LAB BLOOD ORDERABLES Final R esult Performing Organization Address [facility] Co de Phone Number [facility] [address] [facility] [employer] [place], [place] [phone] * Vitamin D 25 hydroxy (10/30/2024 2:56 PM CDT) Pathologist [facility] Vitamin D 25-OH 40 30 - 80 ng/mL Blood 10/30/2024 2:56 PM CDT 10/30/2024 7:49 PM CDT Chris Santos MD LAB BLOOD ORDERABLES Final R esult Performing Organization Address [facility] Co de Phone Number [facility] [address] [facility] [employer] [place], [place] [id number] * Vitamin B12 (10/30/2024 2:56 PM CDT) [facility] Vitamin B12 340 230 - 1,250 pg/mL Blood 10/30/2024 2:56 PM CDT 10/30/2024 7:49 PM CDT us Chris Santos MD LAB BLOOD ORDERABLES Final R esult Performing Organization Address [facility] Co de Phone Number [facility] [address] [facility] [employer] [place], [place] [phone] * (ABNORMAL) Lipid panel (10/30/2024 2:56 PM CDT) [facility] Cholesterol 170 30 - 199 mg/dL Comment: [...] revised on 2018. Triglycerides 345(H) <=149 mg/dL [facility] Comment: Interpretive Data Ages < or [...] revised on 2018. HDL 37(L) >=40 mg/dL [facility] Comment: Interpretive Data Ages < or [...] on 2018. LDL, calculated 77 <=129 mg/dL [facility] Comment: Interpretive Data Ages < or [...] revised on 2024. Non-HDL Cholesterol 133 mg/dL [facility] Comment: Interpretive Data Ages < or [...] last revised on 2018. Chol/HDL ratio 5 [facility] Blood 10/30/2024 2:56 PM CDT 10/30/2024 7:49 PM CDT us Chris Santos MD LAB BLOOD ORDERABLES Final R esult [facility] [address] [place] [address] * Comprehensive metabolic panel (10/30/2024 2:56 PM CDT) Sodium 141 135 - 145 mmol/L Potassium, pl 3.7 3.3 - 4.9 mmol/L [facility] Chloride 100 97 - 110 mmol/L [facility] CO2 27 22 - 32 mmol/L [facility] Anion gap 14 2 - 15 mmol/L [facility] BUN 15 6 - 25 mg/dL [facility] Creatinine 0.79 0.60 - 1.10 mg/dL [facility] Glucose 98 70 - 199 mg/dL [facility] Comment: Interpretive Data Fasting glucose >/= [...] 2022. Calcium 9.3 8.5 - 10.3 mg/dL [facility] Bilirubin, total 0.4 0.1 - 1.2 mg/dL [facility] Protein, pl 7.4 6.5 - 8.5 g/dL [facility] Albumin 4.2 3.5 - 5.0 g/dL [facility] Alk phos 68 40 - 130 Units/L [facility] ALT 11 7 - 45 Units/L [facility] AST 19 10 - 45 Units/L [facility] Blood 10/30/2024 2:56 PM CDT 10/30/2024 7:49 PM CDT us Chris Santos MD LAB BLOOD ORDERABLES Final R esult [facility] [address] [place] [address] * Screening Mammogram Bilateral W Jules (10/19/2022 [...] Assessment: 1 - Negative us Yany Johnson FORMING FIXER IMG MAMMO PROCEDURES Final Resul t * COLONOSCOPY REPORT (11/25/2016) Anatomical Region Laterality Modality Other Narrative 11/25/2016 Ordered by an unspecified provider. Historical Provider GI PROCEDURE ORDERABLES F inal Result * Serum Hepatitis C ab (10/01/2016 3:00 PM HOGSHEAD OPENER) HCV ab Non-Reacti ve Non-Reacti ve CDR HISTORICAL RESULTS Serum 10/01/2016 3:00 PM HOGSHEAD OPENER us Chris Santos MD LAB BLOOD ORDERABLES Final R esult CDR HISTORICAL RESULTS from Last 3 Months or Most Recently Relevant to Health Maintenance Insurance [facility] Care Teams Solid Center Winder Relationship Specialty [place] [id number] [place] [address] PCP - General Internal Medicine 10/30/24
--- OUTSIDE RECORDS SUMMARY | 2025-01-10 15:48 | XMS_ITS | Clinical Summary ---
Author Organization [facility] Care Team Providers Care Accounts Supervisor Name Role Phone Unavailable Primary Care Provider [...]
== END 2025-01-10 16:13 | disposition home or self-care (01) ==
PROVIDERS: Emergency Provider Student in an Organized Health Care Education/Training Program
DX: R10.9 Unspecified abdominal pain (principal); R19.7 Diarrhea, unspecified; K44.9 Diaphragmatic hernia without obstruction or gangrene; M54.9 Dorsalgia, unspecified; I10 Essential (primary) hypertension; W01.0XXA Fall on same level from slipping, tripping and stumbling without subsequent striking against object, initial encounter
CPT/HCPCS: 36415; 71100; 72072; 72131; 74176; 80053; 85025; 85610; 85730; 99284